=== PATIENT | female | born 1950 | race Caucasian/White ===

== ENCOUNTER 2016-10-25 06:45 | Day surgery (SDC) | payer BC ==
[2016-10-23 13:18] VITALS: BMI 29.2
[~2016-10-25 06:45] MED LIST: LACTATED RINGERS 1,000 ML IV SCH
[2016-10-25 07:18] VITALS: TEMP 97
[2016-10-25] MEDS ORDERED: LACTATED RINGERS 1,000 ML IV ONE (07:18)
[2016-10-25] MEDS ORDERED: PROPOFOL 10 MG/ML 20 ML VIAL IV ONE (07:39)
[2016-10-25 08:04] VITALS: RESP 16
--- NOTE | 2016-10-25 08:06 | P.OP ---
Date of Procedure: 10/25/16 Preoperative Diagnosis: Screening Colonoscopy Postoperative Diagnosis: Diverticulosis Procedure(s) Performed: Colonoscopy Implants: Anesthesia: ANAIS Surgeon: Roselyn Mccormack Pathology: none sent Condition: stable Indications for Procedure: Screening for colon cancer , high risk due to BRCA mutation Operative Findings: Description of Procedure: The patient was brought to the endoscopy suite and placed in lateral decubitus position. IV sedation was given as per anesthesia team. A timeout was performed to verify correct patient and correct procedure.Perianal examination did not reveal any external hemorrhoids. Digital rectal examination was performed and was unremarkable. A well- lubricated endoscope was passed per rectally and was gradually advanced beyond the sigmoid colon, splenic flexure, transverse colon, hepatic flexure and cecum. The ileocecal valve was visualized. Then minimal diverticulosis noted without any evidence of diverticulitis. Scope was gradually withdrawn inspecting all the mucosal surfaces. No polyps were seen. Bowel prep was good. No other polyps or masses noted. Retroflexed in the rectum and there were no internal hemorrhoids The scope was gradually withdrawn. Patient tolerated the procedure well and was taken to post anesthesia care unit in stable condition. Recommend repeat colonoscopy in 3 years Plan - Discharge Summary New Discharge Prescriptions: No Action Cyanocobalamin (Vitamin B-12) [Vitamin B12] 500 mcg PO DAILY Cholecalciferol [Vitamin D3] 2,000 unit PO DAILY Levothyroxine Sodium [Synthroid] 50 mcg PO QAM traMADol HCl [Ultram] 50 mg PO QID PRN PRN Reason: Pain Atorvastatin [Lipitor] 10 mg PO HS Ferrous Sulfate [Feosol] 325 mg PO DAILY Ascorbic Acid [Vitamin C] 500 mg PO DAILY Anastrozole [Arimidex] 1 mg PO DAILY Triamterene/Hydrochlorothiazid [Triamterene-Hctz 37.5-25 mg Tb] 1 each PO DAILY Vitamin E 400 unit PO DAILY Calcium Carbonate [Calcium] 600 mg PO DAILY Discharge Medication List Cholecalciferol [Vitamin D3] 2,000 unit PO DAILY 05/27/15 [History] Cyanocobalamin (Vitamin B-12) [Vitamin B12] 500 mcg PO DAILY 05/27/15 [History] Levothyroxine Sodium [Synthroid] 50 mcg PO QAM 05/27/15 [History] Atorvastatin [Lipitor] 10 mg PO HS 06/08/15 [History] Ferrous Sulfate [Feosol] 325 mg PO DAILY 06/08/15 [History] traMADol HCl [Ultram] 50 mg PO QID PRN 06/08/15 [History] Anastrozole [Arimidex] 1 mg PO DAILY 10/23/16 [History] Ascorbic Acid [Vitamin C] 500 mg PO DAILY 10/23/16 [History] Calcium Carbonate [Calcium] 600 mg PO DAILY 10/23/16 [History] Triamterene/Hydrochlorothiazid [Triamterene-Hctz 37.5-25 mg Tb] 1 each PO DAILY 10/23/16 [History] Vitamin E 400 unit PO DAILY 10/23/16 [History]
[2016-10-25 08:24] VITALS: BP 104/71; PULSE 73
== END 2016-10-25 08:35 | disposition home or self-care (01) ==
LOC: ORWHC2ENDO 06:45
PROVIDERS: ATTEND Surgery
DX: Z12.11 Encounter for screening for malignant neoplasm of colon (principal); K57.30 Diverticulosis of large intestine without perforation or abscess without bleeding; Z86.010 Personal history of colon polyps; Z15.89 Genetic susceptibility to other disease; I10 Essential (primary) hypertension; E78.5 Hyperlipidemia, unspecified; E07.9 Disorder of thyroid, unspecified; Z85.3 Personal history of malignant neoplasm of breast; Z79.891 Long term (current) use of opiate analgesic; Z79.899 Other long term (current) drug therapy; Z88.5 Allergy status to narcotic agent; Z91.040 Latex allergy status
CPT/HCPCS: J2704; G0105

== ENCOUNTER 2017-10-09 11:39 | Day surgery (SDC) | payer MEDICARE ==
[2017-10-03 09:37] VITALS: BMI 29.2
[2017-10-09 10:52] VITALS: BP 131/80; RESP 16
[2017-10-09 11:06] VITALS: PULSE 72
[~2017-10-09 11:39] MED LIST changes: +ACETAMINOPHEN TAB 325 MG TAB PO ONE; +CYCLOPENTOLATE 1% OPHTH SOLN 2 ML BTL OP ONE; +LACTATED RINGERS 1,000 ML IV ONE; +LIDOCAINE 1% INJ 10MG/ML (20 ML MDV) ONE; +MIDAZOLAM 2 MG/2 ML VIAL ONE; +MOXIFLOXACIN HCL 0.5% DROPS 3 ML BTL OP ONE; +PHENYLEPHRINE 2.5% OPHTH DRP 2ML OP NR; +PROPOFOL 10 MG/ML 20 ML VIAL IV ONE; +SUCCINYLCHOLINE CHLORIDE 100 MG/5 ML SYR IV ONE; +TETRACAINE 0.5% OPHTH (PF) DROPS 4 ML BTL OP ONE; +TIMOLOL 0.5% OPHTH DROPS 5 ML BTL OP ONE; +fentaNYL (PF) 50 MCG/ML 2 ML AMP ONE
--- NOTE | 2017-10-09 15:57 | OP ---
OPERATIVE REPORT DATE OF SURGERY: 10/09/2017 PROCEDURE: Phacoemulsification of cataract and intraocular lens implant of the left eye. PREOPERATIVE DIAGNOSIS: Nuclear sclerosis and cortical sclerosis. POSTOPERATIVE DIAGNOSIS: Nuclear sclerosis and cortical sclerosis. SURGEON: Dr. Shadi Saavedra. ANESTHESIA: General. ESTIMATED BLOOD LOSS: None. SPECIMEN TAKEN: None. NARRATIVE: After obtaining the appropriate consent, the patient was brought to the operating room. She was placed under cardiac monitoring, induced into general anesthesia and intubated. She was then returned to the normal supine position and was prepped and draped in the usual sterile manner. She was approached from her left temporal side, and at the 5 o'clock position a 20-gauge paracentesis knife was used to create a paracentesis port through this opening. Amvisc was used to stabilize the anterior chamber. At the 3 o'clock position, 2.5 mm keratome was used to create a self-sealing corneal flap incision in a Langerman's fashion. A cystotome was then introduced to begin a continuous tear capsulorrhexis, which was completed using the Utrata forceps. Hydrodissection and hydrodelineation of the lens was accomplished with balanced salt solution. Phacoemulsification lens was accomplished in 8.31 seconds at 7% power. Remaining cortex was then removed under irrigation and aspiration along with careful polishing of the posterior capsule in capsule vacuum mode. Additional Amvisc was used to stabilize the capsular bag and an KRITSIAN PCB00 21.0 diopter posterior chamber intraocular lens was then inserted into the capsular bag without difficulty. The remaining viscoelastic was then removed from within and around the intraocular lens as well as the anterior chamber. The eye was brought to normal intraocular pressure through the paracentesis port with balanced salt solution and the incisions were confirmed watertight. She then received 2 drops of 0.5% Timolol followed by 2 drops of moxifloxacin and was then patched and shielded in the usual manner. She was extubated in the room and returned to Recovery in good condition. MMODL / IJN: [id number] /
== END 2017-10-09 11:45 | disposition home or self-care (01) ==
LOC: OR 11:39
PROVIDERS: ATTEND Ophthalmology
DX: H25.13 Age-related nuclear cataract, bilateral (principal); H25.013 Cortical age-related cataract, bilateral; H43.391 Other vitreous opacities, right eye; H04.123 Dry eye syndrome of bilateral lacrimal glands; H52.4 Presbyopia; H43.813 Vitreous degeneration, bilateral; H00.026 Hordeolum internum left eye, unspecified eyelid; H00.023 Hordeolum internum right eye, unspecified eyelid; M19.90 Unspecified osteoarthritis, unspecified site; E78.00 Pure hypercholesterolemia, unspecified; E03.9 Hypothyroidism, unspecified; M35.3 Polymyalgia rheumatica; J30.2 Other seasonal allergic rhinitis; I10 Essential (primary) hypertension; Z85.9 Personal history of malignant neoplasm, unspecified; Z92.21 Personal history of antineoplastic chemotherapy; Z92.3 Personal history of irradiation; Z79.1 Long term (current) use of non-steroidal anti-inflammatories (NSAID); Z79.890 Hormone replacement therapy; Z79.899 Other long term (current) drug therapy; Z79.891 Long term (current) use of opiate analgesic; Z88.5 Allergy status to narcotic agent; Z91.040 Latex allergy status; Z88.8 Allergy status to other drugs, medicaments and biological substances; Z87.891 Personal history of nicotine dependence
CPT/HCPCS: 66984; C1780; J2250; J2001; J3010; J0330; J2704

== ENCOUNTER 2017-10-23 06:12 | Day surgery (SDC) | payer MEDICARE ==
[2017-10-14 14:12] VITALS: BMI 29.2
[~2017-10-23 06:12] MED LIST changes: -ACETAMINOPHEN TAB 325 MG TAB PO ONE; -LACTATED RINGERS 1,000 ML IV ONE; -LIDOCAINE 1% INJ 10MG/ML (20 ML MDV) ONE; -MIDAZOLAM 2 MG/2 ML VIAL ONE; -PROPOFOL 10 MG/ML 20 ML VIAL IV ONE; -SUCCINYLCHOLINE CHLORIDE 100 MG/5 ML SYR IV ONE; -fentaNYL (PF) 50 MCG/ML 2 ML AMP ONE
[2017-10-23] MEDS ORDERED: ONDANSETRON 4 MG/2 ML VIAL IVP ONE (07:01)
[2017-10-23] MEDS ORDERED: DEXAMETHASONE SOD PHOS (MDV) 100 MG/10 ML VIAL IVP ONE (07:02)
[2017-10-23] MEDS ORDERED: SCOPOLAMINE 1.5MG/72HR PATCH TRANSDERM ONE (07:03)
[2017-10-23] MEDS ORDERED: HYALURONATE SODIUM INTRAOCULAR 1 EACH SYRINGE (12MG/ML) INTRAOCULA ONE (07:28)
[2017-10-23] MEDS ORDERED: BALANCED SALT IRRIG SOLN COMB2 15 ML IRRIG.SOLN INTRAOCULA ONE (07:28)
[2017-10-23] MEDS ORDERED: EPINEPHrine (PF) 0.3 ML in BALANCED SALT IRRIG SOLN COMB2 500 ML IRRIGATION ONE (07:28)
[2017-10-23] MEDS ORDERED: PROPOFOL 10 MG/ML 20 ML VIAL IV ONE (07:28)
[2017-10-23] MEDS ORDERED: fentaNYL (PF) 50 MCG/ML 2 ML AMP ONE (07:28)
[2017-10-23] MEDS ORDERED: LIDOCAINE 1% INJ 10MG/ML (20 ML MDV) ONE (07:28)
[2017-10-23] MEDS ORDERED: LIDOCAINE 1% (PF) 10MG/ML VIAL MISCELLANE ONE (07:45)
[2017-10-23] MEDS ORDERED: LACTATED RINGERS 1,000 ML IV ONE (08:04)
[2017-10-23 08:14] VITALS: TEMP 97.5
[2017-10-23 08:21] VITALS: RESP 16
[2017-10-23] MEDS ORDERED: ACETAMINOPHEN IV (For NPO) 1,000 MG/100 ML VIAL IVPB ONE (08:26)
[2017-10-23] MEDS ORDERED: fentaNYL (PF) 50 MCG/ML 2 ML AMP IVP ONE (08:59)
--- NOTE | 2017-10-23 09:17 | OP ---
OPERATIVE REPORT SURGEON: Shadi Saavedra MD FOOD SPECIALIST: PREOPERATIVE DIAGNOSES: 1. Nuclear sclerosis. 2. Cortical sclerosis. POSTOPERATIVE DIAGNOSES: 1. Nuclear sclerosis. 2. Cortical sclerosis. OPERATION: Clear cornea phacoemulsification of cataract on right eye. ANESTHESIA: General. ESTIMATED BLOOD LOSS: Zero. SPECIMEN TAKEN: None. NARRATIVE: After obtaining the appropriate consent, the patient was brought to the operating room where the patient was placed under cardiac monitoring and prepped and draped in the usual sterile manner. At the 11 o'clock position a 15 degree super sharp blade was used to create a paracentesis followed by instillation of 1% Xylocaine MPF 50:50 mix with BSS into the anterior chamber. This was followed by Amvisc to stabilize the anterior chamber. At the 9 o'clock position a self-sealing corneal flap incision was created using 2.8 mm mila keratome. A cystotome was used to initiate a continuous tear capsulorrhexis which was completed with the Utrata forceps. A Binkhorst cannula was used to hydrodissect the lens nucleus followed by hydrodelineation. Phacoemulsification of the lens was performed utilizing phaco chop in 11.04 seconds at 9% power. The remaining cortical material was removed using the irrigation aspiration mode followed by additional 1% Xylocaine MPF into the anterior chamber followed by viscoelastic to stabilize the capsular bag. An KRISTIAN PCB00 22.0 posterior chamber lens was placed into the capsular bag without difficulty. The remaining viscoelastic material was removed from the anterior chamber with the irrigation/aspiration. Balanced salt solution was used to normalize the intraocular pressure. The incision was checked for watertight integrity. The patient then received two drops of 0.5% timolol followed by two drops Vigamox, was lightly patched and shielded in the usual manner. There were no complications from the procedure. The patient tolerated the procedure well and was returned to recovery in good condition. MMODL / IJN: [id number] /
[2017-10-23 09:21] VITALS: BP 113/72; PULSE 71
== END 2017-10-23 09:48 | disposition home or self-care (01) ==
LOC: OR 06:12
PROVIDERS: ATTEND Ophthalmology
DX: H25.11 Age-related nuclear cataract, right eye (principal); H25.011 Cortical age-related cataract, right eye; H43.391 Other vitreous opacities, right eye; H04.123 Dry eye syndrome of bilateral lacrimal glands; H52.4 Presbyopia; H43.813 Vitreous degeneration, bilateral; H00.026 Hordeolum internum left eye, unspecified eyelid; H00.023 Hordeolum internum right eye, unspecified eyelid; Z96.1 Presence of intraocular lens; M19.90 Unspecified osteoarthritis, unspecified site; E78.00 Pure hypercholesterolemia, unspecified; E03.9 Hypothyroidism, unspecified; I10 Essential (primary) hypertension; J30.2 Other seasonal allergic rhinitis; J34.9 Unspecified disorder of nose and nasal sinuses; Z90.13 Acquired absence of bilateral breasts and nipples; Z85.9 Personal history of malignant neoplasm, unspecified; Z92.21 Personal history of antineoplastic chemotherapy; Z92.3 Personal history of irradiation; Z79.1 Long term (current) use of non-steroidal anti-inflammatories (NSAID); Z79.890 Hormone replacement therapy; Z79.899 Other long term (current) drug therapy; Z88.5 Allergy status to narcotic agent; Z79.891 Long term (current) use of opiate analgesic; Z91.040 Latex allergy status; Z87.891 Personal history of nicotine dependence
CPT/HCPCS: 66984; C1780; J2405; J0171; J2001 ×2; J3010; J1100; J0131; J2704

== ENCOUNTER 2019-11-11 07:03 | Day surgery (SDC) | payer MEDICARE ==
[2019-11-05 14:31] VITALS: BMI 25.2
[~2019-11-11 07:03] MED LIST changes: -CYCLOPENTOLATE 1% OPHTH SOLN 2 ML BTL OP ONE; -MOXIFLOXACIN HCL 0.5% DROPS 3 ML BTL OP ONE; -PHENYLEPHRINE 2.5% OPHTH DRP 2ML OP NR; -TETRACAINE 0.5% OPHTH (PF) DROPS 4 ML BTL OP ONE; -TIMOLOL 0.5% OPHTH DROPS 5 ML BTL OP ONE
[2019-11-11 07:26] VITALS: TEMP 98.1
[2019-11-11] MEDS ORDERED: LIDOCAINE 1% (10MG/ML) FOR IV START INTRADERMA ONE (07:37)
[2019-11-11 07:38] LABS: Glucose,Whole Blood 94 mg/dL (75-99)
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
[2019-11-11] MEDS ORDERED: PROPOFOL 10 MG/ML 20 ML VIAL IV ONE (07:59)
--- NOTE | 2019-11-11 08:28 | P.PCN ---
Date of Procedure: 11/11/19 Description of Procedure: PREOPERATIVE DIAGNOSIS: Family history colon cancer Personal history of colon polyps History of genetic mutation, BRCA POSTOPERATIVE DIAGNOSIS: Family history colon cancer Personal history of colon polyps History of genetic mutation, BRCA Diverticulosis with sigmoid stricture OPERATION: Colonoscopy to the cecum, ileocecal valve and appendiceal orifice. SURGEON: Jeaneth Sosa MD. ANESTHESIA: MAC. INDICATIONS: The patient is a 69-year-old female who presents for colonoscopy screening. Benefits and risks were described and informed consent was obtained. DESCRIPTION OF PROCEDURE: The patient had undergone Suprep. She had been brought into the operating room and laid in the left lateral decubitus position. After adequate intravenous sedation, the rectum was examined with 2% lidocaine jelly. No external hemorrhoids were encountered. The rectal tone was within normal limits. No lesions were palpated in the rectal vault. An Olympus colonoscope was initially entered to the sigmoid colon and exchanged for a pediatric colonoscope due to stricture. The scope advanced until the cecum, ileocecal valve and appendiceal orifice were clearly viewed. The prep was good with clear visualization of the mucosal folds. The scope was removed with visualization of each mucosal fold. Sigmoid diverticulosis was encountered with stricture between 20-30 cm from the anal verge. No colonic polyps were found. No evidence of focal colitis was found. Retroflexion of the scope demonstrated grade 1 internal hemorrhoids without active bleeding or inflammation. The colon was desufflated. The patient had tolerated the procedure well. Withdrawal time was over 6 minutes. FINDINGS: Aronchick preparation quality scale 2 (1-5) Internal hemorrhoids, grade 1 No external prolapsed hemorrhoids. No arteriovenous malformations. No adenomatous polyps. No focal colitis. Diverticulosis with sigmoid stricture between 20-30 cm from anal verge requiring pediatric colonoscope RECOMMENDATIONS: Lower endoscopy in 2022 years due to genetic risk Plan - Discharge Summary New Discharge Prescriptions: Continue Cyanocobalamin (Vitamin B-12) [Vitamin B-12] 500 mcg PO DAILY Levothyroxine Sodium [Synthroid] 50 mcg PO QAM Atorvastatin [Lipitor] 10 mg PO DAILY Anastrozole [Arimidex] 1 mg PO DAILY Triamterene/Hydrochlorothiazid [Triamterene-Hctz 37.5-25 mg Tb] 1 each PO DAILY Calcium Carbonate [Calcium] 1,200 mg PO DAILY Aspirin [Adult Low Dose Aspirin EC] 81 mg PO DAILY Cholecalciferol [Vitamin D3 (25 Mcg = 1000 Iu)] 2,000 unit PO DAILY Folic Acid 1 mg PO DAILY Leflunomide [Arava] 20 mg PO DAILY predniSONE 2.5 mg PO DAILY Tofacitinib Citrate [Xeljanz Xr] 11 mg PO DAILY Vitamin E 1,000 unit PO DAILY Discharge Medication List Cyanocobalamin (Vitamin B-12) [Vitamin B-12] 500 mcg PO DAILY 05/27/15 [History] Levothyroxine Sodium [Synthroid] 50 mcg PO QAM 05/27/15 [History] Atorvastatin [Lipitor] 10 mg PO DAILY 06/08/15 [History] Anastrozole [Arimidex] 1 mg PO DAILY 10/23/16 [History] Calcium Carbonate [Calcium] 1,200 mg PO DAILY 10/23/16 [History] Triamterene/Hydrochlorothiazid [Triamterene-Hctz 37.5-25 mg Tb] 1 each PO DAILY 10/23/16 [History] Aspirin [Adult Low Dose Aspirin EC] 81 mg PO DAILY 11/05/19 [History] Cholecalciferol [Vitamin D3 (25 Mcg = 1000 Iu)] 2,000 unit PO DAILY 11/05/19 [History] Folic Acid 1 mg PO DAILY 11/05/19 [History] Leflunomide [Arava] 20 mg PO DAILY 11/05/19 [History] Tofacitinib Citrate [Xeljanz Xr] 11 mg PO DAILY 11/05/19 [History] Vitamin E 1,000 unit PO DAILY 11/05/19 [History] predniSONE 2.5 mg PO DAILY 11/05/19 [History] Follow up Appointment(s)/Referral(s): Jeaneth Sosa MD [STAFF PHYSICIAN] - As Needed Patient Instructions/Handouts: Diverticulosis (DC), Diverticulosis Diet (GEN) Activity/Diet/Wound Care/Special Instructions: Repeat colonoscopy in 5 years, 2024 Discharge Disposition: HOME SELF-CARE
[2019-11-11 08:57] VITALS: BP 116/72; PULSE 72; RESP 18
== END 2019-11-11 09:14 | disposition home or self-care (01) ==
LOC: ORWHC2ENDO 07:03
PROVIDERS: ATTEND Surgery Plastic and Reconstructive Surgery
DX: Z12.11 Encounter for screening for malignant neoplasm of colon (principal); K57.30 Diverticulosis of large intestine without perforation or abscess without bleeding; K56.699 Other intestinal obstruction unspecified as to partial versus complete obstruction; K64.0 First degree hemorrhoids; Z86.010 Personal history of colon polyps; Z80.0 Family history of malignant neoplasm of digestive organs; E78.5 Hyperlipidemia, unspecified; M19.90 Unspecified osteoarthritis, unspecified site; M06.9 Rheumatoid arthritis, unspecified; E07.9 Disorder of thyroid, unspecified; I10 Essential (primary) hypertension; D64.9 Anemia, unspecified; Z15.01 Genetic susceptibility to malignant neoplasm of breast; Z91.040 Latex allergy status; Z88.5 Allergy status to narcotic agent; Z85.3 Personal history of malignant neoplasm of breast; Z91.09 Other allergy status, other than to drugs and biological substances; Z86.69 Personal history of other diseases of the nervous system and sense organs; Z92.3 Personal history of irradiation; Z92.21 Personal history of antineoplastic chemotherapy; Z87.81 Personal history of (healed) traumatic fracture; Z90.89 Acquired absence of other organs; Z98.890 Other specified postprocedural states; Z90.710 Acquired absence of both cervix and uterus; Z90.13 Acquired absence of bilateral breasts and nipples; Z87.42 Personal history of other diseases of the female genital tract; Z87.39 Personal history of other diseases of the musculoskeletal system and connective tissue; Z98.41 Cataract extraction status, right eye; Z98.42 Cataract extraction status, left eye; Z87.898 Personal history of other specified conditions; Z91.89 Other specified personal risk factors, not elsewhere classified; Z87.891 Personal history of nicotine dependence; Z79.890 Hormone replacement therapy; Z79.899 Other long term (current) drug therapy; Z79.811 Long term (current) use of aromatase inhibitors; Z79.82 Long term (current) use of aspirin; Z79.52 Long term (current) use of systemic steroids; Z80.41 Family history of malignant neoplasm of ovary; Z82.5 Family history of asthma and other chronic lower respiratory diseases; Z80.9 Family history of malignant neoplasm, unspecified
CPT/HCPCS: G0105; J2704; 45378

== ENCOUNTER → 2019-12-14 | Outpatient (CLI) | payer MEDICARE ==
[2019-12-14 15:42] LABS: Basophils % (A) 1 %; Eosinophils % (A) 0 %; HGB 11.6 gm/dL (11.4-16.0); Lymphocytes % (A) 17 %; MCH 29.4 pg (25.0-35.0); MCHC 31.4 g/dL (31.0-37.0); MCV 93.7 fL (80.0-100.0); Mean Platelet Volume 8.7; Monocytes # (A) 0.4 k/uL (0-1.0); Monocytes % (A) 6 %; Neutrophils # (A) 4.4 k/uL (1.3-7.7); Neutrophils % (A) 74 %; Platelet Count 170 k/uL (150-450); RBC 3.95 m/uL (3.80-5.40); RDW 13.1 % (11.5-15.5)
[2019-12-15 01:32] LABS: African American GFR (CKD) 87.8 (60.0-200.0); Albumin 4.4 g/dL (3.80-4.90); C Reactive Protein 3.5 mg/dL (0.0-0.8); Chol/HDL Ratio 3.25; LDL Cholesterol,Calculated 114.6 mg/dL (0.0-131.0); Non-African American GFR(CKD) 75.8 (60.0-200.0); VLDL Calculation 31.4 mg/dL (5.00-40.00)
[2019-12-15 02:06] LABS: Erythrocyte Sedimentation Rate 52 mm/Hr (0-30)
== END | disposition home or self-care (01) ==
LOC: LABWHC1 15:09
PROVIDERS: ATTEND Internal Medicine Rheumatology
DX: M25.50 Pain in unspecified joint (principal); M06.4 Inflammatory polyarthropathy; E78.79 Other disorders of bile acid and cholesterol metabolism; Z79.01 Long term (current) use of anticoagulants
CPT/HCPCS: 36415; 80061; 82040; 82310; 82565; 84450; 84460; 84520; 85025; 85652; 86140

== ENCOUNTER → 2020-07-20 | Outpatient (CLI) | payer MEDICARE ==
[2020-07-20 20:28] LABS: Basophils # (A) 0.02 X 10*3/uL (0.00-0.10); Basophils % (A) 0.5 %; Eosinophils # (A) 0.09 X 10*3/uL (0.04-0.35); Eosinophils % (A) 2.3 %; HCT 39.2 % (37.2-46.3); HGB 12.3 g/dL (12.0-15.0); Lymphocytes # (A) 0.95 X 10*3/uL (0.90-5.00); Lymphocytes % (A) 24.1 %; MCH 29.4 pg (27.0-32.0); MCHC 31.4 g/dL (32.0-37.0); MCV 93.8 fL (80.0-97.0); Mean Platelet Volume 11.9 fL (9.5-12.2); Monocytes # (A) 0.44 X 10*3/uL (0.20-1.00); Monocytes % (A) 11.2 %; Neutrophils # (A) 2.43 X 10*3/uL (1.80-7.70); Neutrophils % (A) 61.6 %; Platelet Count 179 X 10*3/uL (140-440); RBC 4.18 X 10*6/uL (4.10-5.20); RDW 13.4 % (11.5-14.5); WBC 3.94 X 10*3/uL (4.50-10.00)
[2020-07-20 21:22] LABS: ALT 18 U/L (8-44); AST 26 U/L (13-35); African American GFR (CKD) 75.6 (60.0-200.0); C Reactive Protein <0.4 mg/dL (0.0-0.8); Chol/HDL Ratio 4.16; Cholesterol 262 mg/dL (0-200); LDL Cholesterol,Calculated 170.2 mg/dL (0.0-131.0); Non-African American GFR(CKD) 65.2 (60.0-200.0)
[2020-07-20 22:42] LABS: Erythrocyte Sedimentation Rate 20 mm/Hr (0-30)
== END | disposition home or self-care (01) ==
LOC: LABWHC1 09:44
PROVIDERS: ATTEND Internal Medicine Rheumatology
DX: E78.79 Other disorders of bile acid and cholesterol metabolism (principal); M08.40 Pauciarticular juvenile rheumatoid arthritis, unspecified site; M81.0 Age-related osteoporosis without current pathological fracture
CPT/HCPCS: 36415; 80061; 82040; 82310; 82565; 82784; 84450; 84460; 84520; 85025; 85652; 86140

== ENCOUNTER 2020-10-25 06:03 | Inpatient (IN) | payer MEDICARE ==
[2020-10-25] MEDS ORDERED: KETOROLAC 15 MG/ML 1 ML VIAL IVP STA (06:32)
[2020-10-25] MEDS ORDERED: DIAZEPAM 5 MG/ML 2 ML INJ IVP STA (06:32)
[2020-10-25] MEDS ORDERED: ONDANSETRON 4 MG/2 ML VIAL IVP STA (06:32)
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
[2020-10-25] MEDS ORDERED: methylPREDNISolone SOD SUCCI 125 MG/2 ML VIAL IV STA (07:39)
[2020-10-25] MEDS ORDERED: fentaNYL (PF) 50 MCG/ML 2 ML AMP IVP STA (07:39)
--- NOTE | 2020-10-25 08:06 | CT ---
EXAMINATION TYPE: CT lumbar spine wo con DATE OF EXAM: 10/25/2020 COMPARISON: None HISTORY: Left back pain, radicular symptoms CT DLP: 576 mGycm Automated exposure control for dose reduction was used. An unenhanced CT of the lumbar spine was performed. Bone and soft tissue window settings are submitt ed as well as coronal and sagittal reconstructions. FINDINGS: Lumbar vertebral bodies show preserved height and near-anatomic alignment, minimal anterolisthesis gr betty 1 L3-4. Some loss of bone mineralization is suspected. There is multilevel spondylosis. Loss of d isc height is present at intervertebral levels, there is associated vacuum phenomenon at L2-3, L3-4 a nd L4-5, multilevel Schmorl's node formation. L1-L2: Posterior extension of endplate disc complex causes mild anterior mass effect on the thecal sa c. No significant spinal stenosis. No significant foraminal encroachment. L2-L3: Posterior disc bulge causes effacement of anterior thecal sac. There is no significant foramin al encroachment or spinal stenosis. There is some mild facet arthropathy change. L3-L4: Posterior broad-based disc bulge causes anterior mass effect on the thecal sac, there is eccen tric disc material distending towards the left lateral location, lateral extension endplate disc comp jory results in some left-sided foraminal encroachment. No significant spinal stenosis. There is facet arthropathy change. L4-L5: There is a posterior disc herniation in the left posterior paracentral location extending into the lateral recess on the left, this material suspected posterior to the L5 vertebral body additiona lly. Circumferential extension endplate disc complex results in bilateral foraminal encroachment grea ter on the right, noted only the inferior margin on the left. There is likely contact by the disc mat erial with the left L5 nerve root, correlate for radiculopathy. Facet arthropathy changes are present . No significant spinal stenosis. The hypertrophy of the ligamentum flavum causes some posterior late ral mass effect on the thecal sac. L5-S1: There is a posterior broad-based disc bulge, posterior extension of endplate disc complex exte nds circumferentially to cause bilateral foraminal encroachment. No significant spinal stenosis. The broad-based posterior disc bulge contacts the anterior thecal sac and possibly the proximal S1 nerve roots. There is facet arthropathy change. IMPRESSION: Degenerative disc disease, facet arthropathy, multilevel foraminal encroachment as described, disc he rniation at L4-5, correlate for left L5 radiculopathy. Disc material suspected posterior to the L5 ve rtebral body in the left posterior paracentral location extending into the lateral recess. MRI may be of benefit.
[2020-10-25] MEDS ORDERED: ONDANSETRON 4 MG/2 ML VIAL IVP PRN (08:39)
[2020-10-25] MEDS ORDERED: fentaNYL (PF) 50 MCG/ML 2 ML AMP IVP PRN (08:39)
[2020-10-25] MEDS ORDERED: NALOXONE 0.4 MG/ML 1 ML VIAL IV PRN (08:39)
[2020-10-25] MEDS ORDERED: diphenhydrAMINE 50 MG/ML 1 ML VIAL IVP STA (08:45)
[2020-10-25] MEDS ORDERED: traMADol 50 MG TAB PO PRN (12:33)
[2020-10-25] MEDS ORDERED: methocarbamoL 500 MG TAB PO PRN (12:47)
[2020-10-25] MEDS ORDERED: ACETAMINOPHEN TAB 325 MG TAB PO PRN (12:47)
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
[2020-10-25] MEDS: traMADol 50 MG TAB PO PRN ×2 (12:54→21:01)
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
[2020-10-25] MEDS ORDERED: LACTATED RINGERS 1,000 ML IV ONE ×2 (15:05→15:45)
[2020-10-25] MEDS ORDERED: TRIAMCINOLONE ACETONIDE 40 MG/ML 1 ML VIAL ONE (15:26)
[2020-10-25] MEDS ORDERED: ROPIVACAINE 5MG/ML 20ML VIAL ONE (15:26)
[2020-10-25] MEDS ORDERED: IOPAMIDOL M200 10 ML VIAL ONE (15:26)
[2020-10-25] MEDS ORDERED: fentaNYL (PF) 50 MCG/ML 2 ML AMP ONE (15:26)
[2020-10-25] MEDS ORDERED: MIDAZOLAM 2 MG/2 ML VIAL ONE (15:26)
--- NOTE | 2020-10-25 15:43 | P.PCN ---
Date of Procedure: 10/25/20 Surgeon: Mikael Chapin Pathology: none sent Condition: stable Disposition: PACU Description of Procedure: PREOPERATIVE DIAGNOSIS: 1-Lumbar radiculopathy 2- Lumber Degenerative Disc Diseases. POSTOPERATIVE DIAGNOSIS: 1-Lumbar radiculopathy. 2-Lumbar Degenerative Disc Diseases PROCEDURE 1. Lumbar epidural steroid injection under fluoroscopic guidance at the L4-5 level in the left paramedian approach. 2. Lumbar epidurogram. ANESTHESIA: Local with 1% lidocaine; and IV moderate conscious sedation with Versed and fentanyl EBL: Minimal PROCEDURE INDICATION: The patient with low back pain and radiculitis symptoms unresponsive to conservative treatment. Fluoroscopy was used to optimize visualization of the needle placement and to maximize safety. PROCEDURE DESCRIPTION / TECHNIQUE: The patient was seen and identified in the preoperative area. Risks, benefits, complications including but not limited to infections ,bleeding ,allergic reaction to the medications ,nerve damage and not complete pain relief , and alternatives were discussed with the patient. The patient agreed to proceed with the procedure and signed the consent. IV was started, and vital signs were stable. Patient was taken to the OR and time out was completed. The patient was placed in the prone position on procedure table and a pillow was placed under the abdomen to reduce lumbar lordosis. The lumbosacral area was prepped and draped in the usual sterile fashion with ChloraPrep.Patient was closely monitored during the procedure. Conscious sedation was used during the procedure to decrease patients anxiety. Vital signs were monitered during the entire procedure. Using anterior-posterior fluoroscopy, the L4-5 interlaminar space was identified and the skin over this site was marked and then infiltrated with 1% lidocaine subcutaneously. Subsequently, a 20-gauge Tuohy epidural needle was inserted and advanced toward the epidural space using the Loss of resistance to air technique and guided by AP and lateral fluoroscopy. The correct needle position in the epidural space was verified with the injection of 1 mL of the water soluble contrast dye Omnipaque 180 contrast and observing an excellent epidurogram with the epidural spread of the dye, after negative aspiration for blood and CSF and in the absence of paresthesias. Again after negative aspiration, a 8 ml mixture containing 40 mg of Kenalog and 5 ml of preservative free Normal Saline, and 2 ml of preservative free ropivacaine 0.5% solution was injected and a washout of epidurogram was seen. Needle was withdrawn intact, skin was cleansed, and bandages were applied. patient tolerated procedure well and was transferred to PACU in stable condition.A copy of the needle placement picture was saved to the fluoroscopy machine. COMPLICATIONS: None DISPOSITION / PLANS: The patient was placed in a supine position and transferred to the recovery area in a stable condition for observation. There was no evidence of lower extremity motor or sensory deficit after the procedure. Patient was discharged from the recovery room after meeting discharge criteria. Home discharge instructions were given to the patient by the staff. The patient was reexamined prior to discharge. The patient will schedule a follow up in the clinic in 2-4 weeks.
[2020-10-25] MEDS: methylPREDNISolone SOD SUCCI 125 MG/2 ML VIAL IV SCH (17:14)
[2020-10-25] MEDS: ANASTROZOLE 1 MG TAB PO SCH (21:01)
[2020-10-26] MEDS: methylPREDNISolone SOD SUCCI 125 MG/2 ML VIAL IV SCH ×3 (00:18→17:17)
[2020-10-26] MEDS: LEVOTHYROXINE 50 MCG TAB PO SCH (05:44)
[2020-10-26] MEDS: DIAZEPAM 5 MG/ML 2 ML INJ IVP PRN (06:08)
[2020-10-26] MEDS: FERROUS SULFATE 325 MG TAB PO SCH (07:37)
[2020-10-26] MEDS: CALCIUM CARB-VIT D 500 MG-5 MCG TAB PO SCH (07:38)
[2020-10-26] MEDS: ATORVASTATIN 20 MG TAB PO SCH (07:39)
[2020-10-26] MEDS: ASPIRIN 81 MG PO SCH (07:39)
[2020-10-26] MEDS: CYANOCOBALAMIN 500 MCG TAB PO SCH (07:39)
[2020-10-26] MEDS: CHOLECALCIFEROL 25 MCG (1000 IU) TABLET PO SCH (07:39)
[2020-10-26] MEDS: FOLIC ACID 1 MG TAB PO SCH (07:39)
[2020-10-26] MEDS: traMADol 50 MG TAB PO PRN (07:40)
[2020-10-26] MEDS: ANASTROZOLE 1 MG TAB PO SCH (07:45)
[2020-10-26] MEDS: VITAMIN E (DL,TOCOPHERYL ACET) 400 UNIT (180 MG) CAP PO SCH (07:46)
[2020-10-26] MEDS: TRIAMTERENE-HCTZ 37.5-25MG 1 EACH CAP PO SCH (07:47)
[2020-10-26] MEDS ORDERED: NON FORMULARY DRUG (Phentermine Hcl [Adipex-P] 37.5 MG Tablet) PO SCH (09:00)
[2020-10-26] MEDS ORDERED: LEFLUNOMIDE 20 MG TAB PO SCH (09:00)
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
--- NOTE | 2020-10-26 11:33 | MR ---
EXAMINATION TYPE: MR lumbar spine wo con DATE OF EXAM: 10/26/2020 COMPARISON: CT lumbar spine 10/25/2020 HISTORY: Pain TECHNIQUE: Multiplanar, multisequence images of the lumbar spine were acquired. L1-L2: Posterior broad-based disc bulge causes mild anterior mass effect on the thecal sac. No signif icant foraminal encroachment. L2-L3: Posterior broad-based disc bulge causes anterior mass effect on the thecal sac. No significant foraminal encroachment. L3-L4: Posterior broad-based disc bulge extends circumferentially cause some foraminal encroachment o n the left, there is some effacement of anterior thecal sac. Facet arthropathy with hypertrophy ligam entum flavum causes posterior lateral aspect of the thecal sac. L4-L5: There is a posterior broad-based disc bulge present causing anterior mass effect on the thecal sac. Facet arthropathy with hypertrophy ligamentum flavum causes some posterior lateral aspect of th e thecal sac. Some low signal is noted at the left lateral recess and extends posterior to the L5 ana tebral body which may represent disc sequestration, correlate for left L5 radiculopathy. L5-S1: Posterior broad-based disc bulge effaces the anterior thecal sac. There may be contact with th e proximal S1 nerve roots. There is facet arthropathy with hypertrophy of the ligamentum flavum. Circ umferential extension of endplate disc complex results in some foraminal encroachment. There is minim al anterolisthesis grade 1 L5-S1. Lumbar segments are intact. No paraspinal masses are identified. Conus medullaris has a normal appe arance. There is multilevel spondylosis, there are endplate discogenic marrow signal changes. Loss of disc height and signal is present at the intervertebral levels. No significant spinal stenosis. IMPRESSION: Degenerative disc disease with disc herniation and probable sequestered disc fragment posterior to th e L5 vertebral body and involving the left lateral recess, contrast enhanced exam may be of benefit.
--- NOTE | 2020-10-26 11:57 | P.PN ---
Progress Note - Text Progress Note Date: 10/26/20 The patient is again seen and examined. She had her MRI and her x-rays today. I reviewed the images of the MRI and the x-rays as well as the reports. The MRI shows a disc herniation L4 5 with a extruded disc fragment which has migrated behind L5 on the left which correlated well with her symptoms. She has cemented disc degeneration at L4 5 there is also some facet arthrosis and disc herniation L3 4 and L5-S1. The x-ray of the lumbar spine with flexion-extension shows significant disc heig ht loss at L4 5 there is no evidence of listhesis or obvious instability in flexion and extension. Had a long discussion with patient regards to her symptoms and imaging findings. The patient has a disc herniation which correlates well with her low back and lower extremity symptoms. She has primarily lower extremity symptoms with some weakness with dorsiflexion which relates with the Hurst disc herniation at L4 5. She is not had significant low back pain over the past and is not having evidence of instability. With her weakness as well as her severe symptoms and inability to mobilize as well as the fact that her steroids and interventional pain management has not given her significant relief she is very interested in surgical intervention. I think that she could do well with laminectomy decompression with discectomy for decompression at L4 5. We discussed possibly a fusion surgery and we will try to hold off on fusion and see if she can do well with decompression alone. I discussed the risk, patient's alternatives benefits of surgery including but not limited to the risk of bleeding risk infection was need further surgery risk of decreased loss of motion loss function dural tear nerve damage as well as packet surgery may not alleviate her symptoms as explained. The patient elected to proceed with surgical intervention and will sign informed consent. We'll have her cleared with medical management and I discussed this with the medicine service as well. We will plan for surgical intervention tomorrow on for laminectomy decompression L4 5.
[2020-10-26] MEDS: HYDROcodone/APAP 5-325MG 1 EACH TAB PO PRN ×2 (12:44→21:02)
[2020-10-26 12:46] LABS: Basophils % (A) 0 %; Eosinophils % (A) 0 %; HCT 36.9 % (34.0-46.0); HGB 12.5 gm/dL (11.4-16.0); Lymphocytes # (A) 0.4 k/uL (1.0-4.8); Lymphocytes % (A) 3 %; MCH 30.7 pg (25.0-35.0); MCHC 33.9 g/dL (31.0-37.0); MCV 90.5 fL (80.0-100.0); Mean Platelet Volume 8.5; Monocytes # (A) 0.3 k/uL (0-1.0); Monocytes % (A) 3 %; Neutrophils # (A) 10.8 k/uL (1.3-7.7); Neutrophils % (A) 94 %; Platelet Count 172 k/uL (150-450); RBC 4.08 m/uL (3.80-5.40); RDW 13.3 % (11.5-15.5); WBC 11.5 k/uL (3.8-10.6)
[2020-10-26 12:54] LABS: African American GFR (CKD) 87 (>60 ml/min/1.73 sqM); Anion Gap 8 mmol/L; Blood Urea Nitrogen 30 mg/dL (7-17); Calcium 9.9 mg/dL (8.4-10.2); Carbon Dioxide 29 mmol/L (22-30); Chloride 101 mmol/L (98-107); Glucose 120 mg/dL (74-99); Non-African American GFR(CKD) 76 (>60 ml/min/1.73 sqM); Potassium 4.3 mmol/L (3.5-5.1); Sodium 138 mmol/L (137-145)
--- NOTE | 2020-10-26 13:02 | XR ---
EXAMINATION TYPE: XR chest 2V DATE OF EXAM: 10/26/2020 CLINICAL HISTORY: pre op clearance. TECHNIQUE: Frontal and lateral view of the chest. COMPARISON: 05/30/2015 FINDINGS: Bilateral breast implants. The cardiomediastinal silhouette is within normal limits for size. Pulmonary vasculature is normal. T here is no focal air space opacity. No pleural effusion. No pneumothorax seen. No acute displaced os seous fracture. Degenerative changes of the mid to inferior thoracic spine. IMPRESSION: No acute cardiopulmonary process.
[2020-10-26 13:07] LABS: INR 0.9 (<1.2); Prothrombin Time 9.6 sec (9.0-12.0)
[2020-10-26 13:20] LABS: Partial Thromboplastin Time 20.3 sec (22.0-30.0)
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
--- NOTE | 2020-10-26 14:44 | XR ---
EXAMINATION TYPE: XR lumbar spine with bend/flex DATE OF EXAM: 10/26/2020 CLINICAL HISTORY: Lumbar disc herniation, degenerative disc disease, spondylosis TECHNIQUE: Standing frontal and standing lateral neutral/extension/flexion views of the lumbar spine obtained. COMPARISON: 10/25/2020 MRI lumbar spine. 10/25/2020 CT lumbar spine. FINDINGS: There are 5 lumbar type vertebral bodies identified. There is straightening of the lumbar lordosis. Vertebral body heights are normal. No acute displaced fracture. There is disc space narrow ing at L4-L5 and L5-S1. There is multilevel vacuum disc phenomenon. There is no spondylolisthesis natalia reciated in neutral, extension, or flexion views. There is marked osteophytic spurring of the lumbar spine endplates. Multilevel facet arthropathy worse inferiorly. The overlying soft tissue appears unr emarkable. IMPRESSION: 1. Multilevel degenerative disc disease and facet arthropathy. 2. No evidence of spondylolisthesis in neutral, extension, or flexion views.
[2020-10-26 15:03] LABS: Appearance,Urine Clear (Clear); Bilirubin,Urine Negative (Negative); Blood,Urine Negative (Negative); Color,Urine Yellow; Glucose,Urine (UA) Negative (Negative); Ketones,Urine Negative (Negative); Leukocyte Esterase,Urine Negative (Negative); Nitrite,Urine Negative (Negative); PH, Urine 5.5 (5.0-8.0); Protein,Urine Negative (Negative); Specific Gravity,Urine 1.014 (1.001-1.035); Urobilinogen,Urine <2.0 mg/dL (<2.0)
[2020-10-26 17:08] LABS: Glucose,Whole Blood 157 mg/dL (75-99)
[2020-10-26] MEDS: INSULIN ASPART (NovoLOG) 100 UNIT/ML VIAL SQ SCH ×2 (18:12→21:30)
[2020-10-26 20:09] LABS: Glucose,Whole Blood 120 mg/dL (75-99)
[2020-10-27] MEDS: methylPREDNISolone SOD SUCCI 125 MG/2 ML VIAL IV SCH ×4 (00:40→23:41)
[2020-10-27] MEDS: HYDROcodone/APAP 5-325MG 1 EACH TAB PO PRN ×3 (05:04→20:17)
[2020-10-27] MEDS: LEVOTHYROXINE 50 MCG TAB PO SCH (05:04)
[2020-10-27] MEDS: SODIUM CHLORIDE 0.9% 1,000 ML IV SCH ×3 (05:04→16:08)
[2020-10-27] MEDS ORDERED: LACTATED RINGERS 1,000 ML IV SCH (05:52)
[2020-10-27 06:56] LABS: Glucose,Whole Blood 161 mg/dL (75-99)
[2020-10-27] MEDS: ATORVASTATIN 20 MG TAB PO SCH (07:10)
[2020-10-27] MEDS: CHOLECALCIFEROL 25 MCG (1000 IU) TABLET PO SCH (07:10)
[2020-10-27] MEDS: CYANOCOBALAMIN 500 MCG TAB PO SCH (07:10)
[2020-10-27] MEDS: CALCIUM CARB-VIT D 500 MG-5 MCG TAB PO SCH (07:10)
[2020-10-27] MEDS: FOLIC ACID 1 MG TAB PO SCH (07:11)
[2020-10-27] MEDS: VITAMIN E (DL,TOCOPHERYL ACET) 400 UNIT (180 MG) CAP PO SCH (07:11)
[2020-10-27] MEDS: FERROUS SULFATE 325 MG TAB PO SCH (07:11)
[2020-10-27] MEDS: ASPIRIN 81 MG PO SCH (09:12)
[2020-10-27] MEDS: ANASTROZOLE 1 MG TAB PO SCH (09:13)
[2020-10-27] MEDS: TRIAMTERENE-HCTZ 37.5-25MG 1 EACH CAP PO SCH (09:14)
[2020-10-27] MEDS: INSULIN ASPART (NovoLOG) 100 UNIT/ML VIAL SQ SCH ×4 (09:14→20:31)
[2020-10-27] MEDS ORDERED: IV FLUID CONTINUATION 1,000 ML IV ONE (09:59)
[2020-10-27] MEDS ORDERED: ONDANSETRON 4 MG/2 ML VIAL IVP ONE (10:21)
[2020-10-27] MEDS ORDERED: SCOPOLAMINE 1.5MG/72HR PATCH TRANSDERM ONE (10:26)
[2020-10-27 10:30] LABS: Glucose,Whole Blood 103 mg/dL (75-99)
[2020-10-27] MEDS ORDERED: MIDAZOLAM 2 MG/2 ML VIAL IVP ONE ×2 (10:33→10:51)
[2020-10-27] MEDS ORDERED: PHENYLEPHRINE-0.9% NACL SYG 1,000 MCG/10 ML SYRINGE ONE (10:56)
[2020-10-27] MEDS ORDERED: PROPOFOL 10 MG/ML 20 ML VIAL IV ONE (10:56)
[2020-10-27] MEDS ORDERED: MIDAZOLAM 2 MG/2 ML VIAL ONE (10:56)
[2020-10-27] MEDS ORDERED: LIDOCAINE 1% INJ 10MG/ML (20 ML MDV) ONE (10:56)
[2020-10-27] MEDS ORDERED: KETAMINE 10 MG/ML 20 ML VIAL ONE (10:56)
[2020-10-27] MEDS ORDERED: fentaNYL (PF) 50 MCG/ML 2 ML AMP ONE (10:56)
[2020-10-27] MEDS ORDERED: SUCCINYLCHOLINE CHLORIDE 100 MG/5 ML SYR IV ONE (10:56)
[2020-10-27] MEDS ORDERED: BUPIVACAINE (PF) 0.25% 30 ML VIAL SQ ONE ×2 (11:28)
[2020-10-27] MEDS ORDERED: GELATIN SPONGE,ABSORB (LARGE) 1 EACH SPONGE TOPICAL ONE (11:28)
[2020-10-27] MEDS ORDERED: LIDOCAINE 1%-EPI 1:100,000 20 ML VIAL SQ ONE ×2 (11:28)
[2020-10-27] MEDS ORDERED: THROMBIN (BOVINE) 5,000 UNIT VIAL TOPICAL ONE (11:29)
[2020-10-27] MEDS ORDERED: LACTATED RINGERS 1,000 ML IV ONE (11:57)
[2020-10-27] MEDS ORDERED: methylPREDNISolone ACETATE 40 MG/ML 1 ML VIAL MISCELLANE ONE (11:57)
[2020-10-27] MEDS ORDERED: fentaNYL (PF) 50 MCG/ML 2 ML AMP IVP ONE (12:30)
[2020-10-27] MEDS ORDERED: HYDROmorphone 0.5 MG/0.5 ML SYRINGE IVP PRN (12:34)
[2020-10-27] MEDS ORDERED: HYDROcodone/APAP 5-325MG 1 EACH TAB PO PRN (12:34)
[2020-10-27] MEDS ORDERED: MAGNESIUM HYDROXIDE 2,400 MG/10 ML CUP PO PRN (12:34)
[2020-10-27] MEDS ORDERED: BENZOCAINE/MENTHOL LOZENG 1 EACH LOZENGE MUCOUS MEM PRN (12:34)
[2020-10-27] MEDS ORDERED: HYDROmorphone 1 MG/ML 1 ML SYRINGE IVP PRN (12:34)
[2020-10-27] MEDS ORDERED: KETOROLAC 15 MG/ML 1 ML VIAL IVP PRN (12:36)
[2020-10-27] MEDS ORDERED: CYCLOBENZAPRINE 10 MG TAB PO PRN (12:36)
[2020-10-27] MEDS ORDERED: IBUPROFEN 600 MG TAB PO PRN (12:36)
--- NOTE | 2020-10-27 12:51 | P.OP ---
Date of Procedure: 10/27/20 Preoperative Diagnosis: Herniated nucleus pulposis L4 5, left lower extremity radiculopathy, left lower extremity weakness, degenerative disc disease Postoperative Diagnosis: Same Anesthesia: GETA Pathology: none sent Condition: stable Disposition: PACU Description of Procedure: BRIEF OPERATIVE NOTE Preoperative Diagnosis:Herniated nucleus pulposis L4 5, left lower extremity radiculopathy, left lower extremity weakness, degenerative disc disease Postoperative Diagnosis:Herniated nucleus pulposis L4 5, left lower extremity radiculopathy, left lower extremity weakness, degenerative disc disease Procedure: Laminectomy and decompression L4 5 with partial medial facetectomy and foraminotomy Discectomy for decompression L4 5 Surgeon: Dr. Vincent Kiln Burner: daycare assistant Anesthesia: General anesthesia Estimated blood loss: Approximately 50 mL Complications: None apparent Components implanted: None Disposition: To recovery room in good stable condition. OPERATIVE INDICATIONS The patient has been having issues in their lower back and lower extremities. She has had acute worsening and severe problems with her left lower extremity. She is having significant weakness which was a change for her. She is unable ambulate and was hospitalized due to her issues. She underwent an epidural steroid injection but only had about 1 day of relief. She is found have a large disc herniation with extruded fragment L4 5 which correlated well with her lower extremity symptoms and her weakness. The patient has been through conservative treatment. She does not feel she is making any good progress. We discussed various treatment options including surgery, and the patient wishes to proceed with surgery. We discussed the possibility of decompression alone versus possibly decompression and fusion as well. We discussed the risk, patient's alternatives and benefits of surgery including but not limited to, risk of bleeding risk of infection, risk of need for further surgery, risk of decreased, loss of motion, loss of function, nerve damage, paralysis, heart attack, blindness and . OPERATIVE SUMMARY After discussing all the risks, patient alternatives and benefits at length, the patient elected to proceed with surgical intervention, signed informed consent, and presented for their procedure. The patient was seen and examined in the preoperative holding area and the surgical site was marked. The patient was given antibiotics and brought to the operating room. The patient was sedated and intubated by anesthesia in standard fashion. The patient was positioned on to the operating room table in a prone position on the appropriate frame which was well-padded and well molded. We were careful to pad any bony prominences and pressure points. We were careful to maintain the patient's cervical spine and good neutral alignment and position throughout. The patient was prepped and draped in a normal standard fashion. An appropriate timeout and keystone protocol performed. We were able to proceed with the surgery. Fluoroscopy was utilized to establish the appropriate level. The local wound area was infiltrated with local anesthetic. An incision was made at the midline longitudinally over the appropriate levels at L4 5. Dissection was taken down subcutaneously to the level of the fascia which was split midline. Dissection was taken over the lamina. Intraoperative fluoroscopy was taken which showed a marker at the appropriate level of L4 5. With the appropriate level positively confirmed, we were able to proceed with laminectomy. The wound was copiously irrigated and suctioned dry as had been done periodically throughout the case. I performed a laminectomy with a combination of curettes and a high-speed bur and Kerrison rongeurs. A small medial facetectomy was performed again further access. A partial foraminotomy was also performed. Portions of the ligamentum flavum were taken down to expose the dura and traversing nerve root. I was able to mobilize the traversing nerve root and gain access to the disc space. Note was made of obvious compression from the disc. There is significant amount of extruded disc fragment which and migrated inferiorly behind the vertebral body of L5. Protecting the soft tissue structures, a small annulotomy was established. I was able to perform discectomy and remove any extruded disc fragments and any loose fragments from within the disc itself. As able get excellent decompression and removed the extruded fragments in the migrated treatment as well. There is some severe disc desiccation noted. I tried to preserve the disc annulus that appeared stable. There were no further extruded fragments noted. There is no evidence of dural tear or leak. Good hemostasis maintained. The wound was copiously irrigated and suctioned dry. Good decompression and discectomy was noted. We were able to proceed with closure. The fascia was closed for a watertight closure. The subcuticular tissue was closed with absorbable suture. The wound was cleaned and dried and dressed with the appropriate dressing. The drapes were broken down. The patient was gently rolled back onto their hospital bed being careful to maintain their cervical spine and good neutral alignment and position. They were woken up by anesthesia, extubated, and brought to the recovery room in good stable condition. The patient will be admitted to the hospital for observation and for appropriate postoperative care, medical management and monitoring. We will continue to follow them closely about the postoperative course.
--- NOTE | 2020-10-27 13:32 | FL ---
EXAMINATION TYPE: FL guidance operating room, XR lumbar spine 1V DATE OF EXAM: 10/27/2020 CLINICAL HISTORY: Lumbar laminectomy TECHNIQUE: Fluoroscopy. COMPARISON: None. FINDINGS: Fluoroscopic guidance was provided during procedure performed by Dr. Vincent. A total of 3 seconds of fluoroscopic time was utilized during the procedure and 1 spot images was acquired. IMPRESSION: As Above.
[2020-10-27 17:01] LABS: Glucose,Whole Blood 204 mg/dL (75-99)
[2020-10-27 20:08] LABS: Glucose,Whole Blood 132 mg/dL (75-99)
[2020-10-27] MEDS: DIAZEPAM 5 MG/ML 2 ML INJ IVP PRN (23:46)
[2020-10-28] MEDS: HYDROcodone/APAP 5-325MG 1 EACH TAB PO PRN ×2 (01:54→08:05)
[2020-10-28] MEDS: SODIUM CHLORIDE 0.9% 1,000 ML IV SCH (05:50)
[2020-10-28] MEDS: LEVOTHYROXINE 50 MCG TAB PO SCH (05:50)
[2020-10-28 07:14] LABS: Glucose,Whole Blood 128 mg/dL (75-99)
[2020-10-28] MEDS: INSULIN ASPART (NovoLOG) 100 UNIT/ML VIAL SQ SCH ×2 (07:40→11:27)
[2020-10-28] MEDS: ANASTROZOLE 1 MG TAB PO SCH (08:04)
[2020-10-28] MEDS: CYANOCOBALAMIN 500 MCG TAB PO SCH (08:06)
[2020-10-28] MEDS: FERROUS SULFATE 325 MG TAB PO SCH (08:06)
[2020-10-28] MEDS: CALCIUM CARB-VIT D 500 MG-5 MCG TAB PO SCH (08:06)
[2020-10-28] MEDS: CHOLECALCIFEROL 25 MCG (1000 IU) TABLET PO SCH (08:06)
[2020-10-28] MEDS: ASPIRIN 81 MG PO SCH (08:06)
[2020-10-28] MEDS: TRIAMTERENE-HCTZ 37.5-25MG 1 EACH CAP PO SCH (08:06)
[2020-10-28] MEDS: ATORVASTATIN 20 MG TAB PO SCH (08:06)
[2020-10-28] MEDS: methylPREDNISolone SOD SUCCI 125 MG/2 ML VIAL IV SCH (08:06)
[2020-10-28] MEDS: VITAMIN E (DL,TOCOPHERYL ACET) 400 UNIT (180 MG) CAP PO SCH (08:06)
[2020-10-28] MEDS: FOLIC ACID 1 MG TAB PO SCH (08:06)
[2020-10-28] MEDS ORDERED: SENNOSIDES-DOCUSATE SODIUM 1 EACH TAB PO SCH (09:00)
[2020-10-28 11:25] LABS: Glucose,Whole Blood 123 mg/dL (75-99)
--- NOTE | 2020-10-28 11:30 | P.PN ---
Subjective Progress Note Date: 10/28/20 This patient is a 70-year-old female who is status-post laminectomy and decompression L4-5 with partial medial facetectomy and foraminotomy on 10/27/[address] Vincent. Today is postoperative day #1. Patient is seen and examined bedside. She states she is doing well and her pain is well controlled. She notes mild low back pain at the surgical site, otherwise her left lower extremity pain has resolved. She has been up to the restroom with minimal discomfort. She has had a bowel movement postoperatively. She is urinating without issues. She is tolerating her diet well. She denies chest pain, shortness breath, nausea, vomiting, fevers, chills. She has no complaints today. Vital signs stable. Objective - Vital Signs Vital signs: Vital Signs Temp 98.7 F 10/28/20 05:00 Pulse 67 10/28/20 05:00 Resp 16 10/28/20 05:00 BP 106/63 10/28/20 05:00 Pulse Ox 95 10/28/20 05:00 Intake & Output 10/27/20 10/28/20 10/28/20 18:59 06:59 18:59 Intake Total 950 1960 Output Total 50 Balance 900 1960 Intake: IV 950 Intake, IV Titration 1000 Amount Sodium Chloride 0.9% 1, 900 000 ml @ 75 mls/hr IV . [id number] JO ANN Rx#:[id number] ceFAZolin 2 gm In Sodium 100 Chloride 0.9% 50 ml @ 100 mls/hr IVPB Q8H JO ANN Rx#: [id number] Oral 960 Output: Estimated Blood Loss 50 Other: Voiding Method Toilet # Voids 1 - Exam On examination, the patient is lying in bed in no pain distress. She is alert and orientated 3. On inspection of the low back, there is a clean, dry, intact OptiForm dressing in place. There is no bleeding or drainage to the dressing. Motor and sensory function is intact of the bilateral lower extremities. Bila teral lower extremities are warm and well perfused with brisk capillary refill distally. Compression cuffs are in place, calves are soft and nontender to palpation bilaterally. - Labs CBC & Chem 7: 10/26/20 12:15 10/26/20 12:15 Labs: Abnormal Lab Results - Last 24 Hours (Table) 10/27/20 10/27/20 10/28/20 Range/Units 16:59 20:06 07:12 POC Glucose (mg/dL) 204 H 132 H 128 H (75-99) mg/dL Assessment and Plan Assessment: Status-post laminectomy and decompression L4-5 with partial medial facetectomy and foraminotomy on 10/27/20. Postoperative day #1. Plan: - Patient may continue to mobilize as tolerated. She may ambulate as tolerated. No repetitive bending or twisting. - Keep Optifoam dressing in place. - Pain management as needed. - Postoperative antibiotics complete. - Medical management per internal medicine team. - Anticipate discharge home tomorrow, pending medical clearance.
--- NOTE | 2020-10-28 11:42 | P.PN ---
Subjective Progress Note Date: 10/27/20 HISTORY OF PRESENT ILLNESS This is a 70-year-old female patient of Dr. Goldsmith with past medical history of hypertension,hyperlipidemia, rheumatoid arthritis, osteoarthritis, breast cancer, BRCA2 status post bilateral mastectomy and chemotherapy completed in 2016, hypothyroidism. Patient states she saw Dr. Goldsmith in September and was placed on prednisone for 10 day course secondary to lumbar back pain with radiation down the left leg. She states she completed the course of steroids and had a follow-up visit on October 14. It seems that as soon as her prednisone was completed, pain returned. She complains of numbness and tingling in the left foot. Pain does not seem to be improving and continues to worsen over the past several weeks. She also is having some weakness of her left leg. She denies any loss of bowel or bladder control. Patient was also seen by chiropra ctor. Patient presented to [facility] emergency center yesterday. CAT scan of the lumbar spine revealed significant disc degeneration L2 through L3 4 L4 5. There is some vacuum disc none. There appears to be a disc herniation at L4 5 with some extrusion of material. There is foraminal stenosis L3 4 and L4 5. There is no obvious fracture. WBC 11.5, hemoglobin 12.5, platelet count 172. Electrolytes were normal. BUN 30 and creatinine 0.8. Blood sugar 120. Patient was admitted to the [facility] floor and she was seen last evening by pain management and is status post lumbar epidural steroid injection at the L4 5 level. Chest x-ray reveals no acute cardiopulmonary process. MRI of the lumbar spine reveals degenerative disc disease with disc herniation and probable sequestered disc fragment posterior to the L5 vertebral body and falling to the left lateral recess. Patient has been reevaluated by Dr. Yuen with plan for surgical intervention on for laminectomy decompression of L4 5. 10/27: Patient states that her pain is currently controlled and spasms are gone. She is tolerating Kent's which seems to be improving her pain. She is scheduled for surgical intervention today. Blood sugars are running between 120s and 161. Patient's been afebrile, heart rate 54, blood pressure 135/82, pulse ox 93% on room air. REVIEW OF SYSTEMS Constitutional: No fever, no chills, no night sweats. No weight change. No weakness, fatigue or lethargy. No daytime sleepiness. EENT: No headache. No blurred vision or double vision, no loss of vision. No loss of Hearing, no ringing in the ears, no dizziness. No nasal drainage or congestion. No epistaxis. No sore throat. Lungs: No shortness of breath, cough, no sputum production. No wheezing. Cardiovascular: No chest pain, no lower extremity edema. No palpitations. No paroxysmal nocturnal dyspnea. No orthopnea. No lightheadedness or dizziness. No syncopal episodes. Abdominal: No abdominal pain. No nausea, vomiting. No diarrhea. No constipation. No bloody or tarry stools.. No loss of appetite. Genitourinary: No dysuria, increased frequency, urgency. No urinary retention. Musculoskeletal: No myalgias. No muscle weakness, reports gait dysfunction, no frequent falls. Reports back pain. No neck pain. Integumentary: No wounds, no lesions. No rash or pruritus. No unusual bruising. No change in hair or nails. Neurologic: No aphasia. No facial droop. No change in mentation. No head injury. No headache. No paralysis. No paresthesia. Psychiatric: No depression. No anxiety. No mood swings. Endocrine: No abnormal blood sugars. No weight change. No excessive sweating or thirst. No cold intolerance. PHYSICAL EXAMINATION Gen: This is a 70-year-old female. She is resting in bed and appears to be comfortable at rest. HEENT: Head is atraumatic, normocephalic. Pupils equal, round. Sclerae is anicteric. NECK: Supple. No JVD. No lymphadenopathy. No thyromegaly. LUNGS: Clear to auscultation. No wheezes or rhonchi. No intercostal retractions. HEART: Regular rate and rhythm. No murmur. ABDOMEN: Soft. Bowel sounds are present. No masses. No tenderness. EXTREMITIES: No pedal edema. No calf tenderness. NEUROLOGICAL: Patient is awake, alert and oriented x3. Cranial nerves 2 through 12 are grossly intact. ASSESSMENT AND PLAN 1. Lumbar back pain with disc herniation, scheduled for laminectomy decompression L4 5 today. Patient has been cleared medically for surgical intervention. Continue current pain management, patient requesting to try Kent for pain as she does not think tramadol is helping. Continue fentanyl, tramadol Valium and IV Solu-Medrol at 80 mg IV every 8 hours, Robaxin. 2. History of breast cancer. Continue Arimidex 1 mg oral daily. 3. Hypertension. Continue Dyazide 1 daily. 4. Hyperlipidemia. Continue atorvastatin 20 g daily. 5. Rheumatoid arthritis. Patient is on Arava 20 mg daily and Xeljanz XR 11 mg daily--both will be placed on hold 6. Hypothyroidism. Continue levothyroxine 50 g daily. 7. GI prophylaxis. Protonix daily. 8. DVT prophylaxis per orthopedics. DISCHARGE PLAN Home. Impression and plan of care have been directed as dictated by the signing physician. Kenia Valdez nurse practitioner acting as scribe for signing physician. Objective - Vital Signs Vital signs: Vital Signs Temp 98.4 F 10/27/20 05:46 Pulse 54 L 10/27/20 05:46 Resp 18 10/27/20 05:46 BP 135/82 10/27/20 05:46 Pulse Ox 93 L 10/27/20 05:46 Intake & Output 10/26/20 10/27/20 10/27/20 18:59 06:59 18:59 Other: Voiding Method Toilet Toilet # Voids 2 - Labs CBC & Chem 7: 10/26/20 12:15 10/26/20 12:15 Labs: Abnormal Lab Results - Last 24 Hours (Table) 10/26/20 10/26/20 10/26/20 Range/Units 12:15 12:15 12:15 WBC 11.5 H (3.8-10.6) k/uL Neutrophils # 10.8 H (1.3-7.7) k/uL Lymphocytes # 0.4 L (1.0-4.8) k/uL APTT 20.3 L (22.0-30.0) sec BUN 30 H (7-17) mg/dL Glucose 120 H (74-99) mg/dL POC Glucose (mg/dL) (75-99) mg/dL 10/26/20 10/26/20 10/27/20 Range/Units 17:06 20:08 06:54 WBC (3.8-10.6) k/uL Neutrophils # (1.3-7.7) k/uL Lymphocytes # (1.0-4.8) k/uL APTT (22.0-30.0) sec BUN (7-17) mg/dL Glucose (74-99) mg/dL POC Glucose (mg/dL) 157 H 120 H 161 H (75-99) mg/dL
--- NOTE | 2020-10-28 11:47 | P.PN ---
Subjective Progress Note Date: 10/28/20 HISTORY OF PRESENT ILLNESS This is a 70-year-old female patient of Dr. Goldsmith with past medical history of hypertension,hyperlipidemia, rheumatoid arthritis, osteoarthritis, breast cancer, BRCA2 status post bilateral mastectomy and chemotherapy completed in 2016, hypothyroidism. Patient states she saw Dr. Goldsmith in September and was placed on prednisone for 10 day course secondary to lumbar back pain with radiation down the left leg. She states she completed the course of steroids and had a follow-up visit on October 14. It seems that as soon as her prednisone was completed, pain returned. She complains of numbness and tingling in the left foot. Pain does not seem to be improving and continues to worsen over the past several weeks. She also is having some weakness of her left leg. She denies any loss of bowel or bladder control. Patient was also seen by chiropra ctor. Patient presented to [facility] emergency center yesterday. CAT scan of the lumbar spine revealed significant disc degeneration L2 through L3 4 L4 5. There is some vacuum disc none. There appears to be a disc herniation at L4 5 with some extrusion of material. There is foraminal stenosis L3 4 and L4 5. There is no obvious fracture. WBC 11.5, hemoglobin 12.5, platelet count 172. Electrolytes were normal. BUN 30 and creatinine 0.8. Blood sugar 120. Patient was admitted to the [facility] floor and she was seen last evening by pain management and is status post lumbar epidural steroid injection at the L4 5 level. Chest x-ray reveals no acute cardiopulmonary process. MRI of the lumbar spine reveals degenerative disc disease with disc herniation and probable sequestered disc fragment posterior to the L5 vertebral body and falling to the left lateral recess. Patient has been reevaluated by Dr. Yuen with plan for surgical intervention on for laminectomy decompression of L4 5. 10/27: Patient states that her pain is currently controlled and spasms are gone. She is tolerating [place]'s which seems to be improving her pain. She is scheduled for surgical intervention today. Blood sugars are running between 120s and 161. Patient's been afebrile, heart rate 54, blood pressure 135/82, pulse ox 93% on room air. 10/28: Patient states that her discomfort is much improved today. She states she did well yesterday following surgery. She has been ambulating in her room. Blood sugars are running between 123 and 204. Most likely, patient will be dis charged home tomorrow. REVIEW OF SYSTEMS Constitutional: No fever, no chills, no night sweats. No weight change. No weakness, fatigue or lethargy. No daytime sleepiness. EENT: No headache. No blurred vision or double vision, no loss of vision. No loss of Hearing, no ringing in the ears, no dizziness. No nasal drainage or congestion. No epistaxis. No sore throat. Lungs: No shortness of breath, cough, no sputum production. No wheezing. Cardiovascular: No chest pain, no lower extremity edema. No palpitations. No paroxysmal nocturnal dyspnea. No orthopnea. No lightheadedness or dizziness. No syncopal episodes. Abdominal: No abdominal pain. No nausea, vomiting. No diarrhea. No constipation. No bloody or tarry stools.. No loss of appetite. Genitourinary: No dysuria, increased frequency, urgency. No urinary retention. Musculoskeletal: No myalgias. No muscle weakness, reports gait dysfunction, no frequent falls. Reports back pain-improved. No neck pain. Integumentary: No wounds, no lesions. No rash or pruritus. No unusual bruising. No change in hair or nails. Neurologic: No aphasia. No facial droop. No change in mentation. No head injury. No headache. No paralysis. No paresthesia. Psychiatric: No depression. No anxiety. No mood swings. Endocrine: No abnormal blood sugars. No weight change. No excessive sweating or thirst. No cold intolerance. PHYSICAL EXAMINATION Gen: This is a 70-year-old female. She is resting in bed and appears to be comfortable at rest. HEENT: Head is atraumatic, normocephalic. Pupils equal, round. Sclerae is anicteric. NECK: Supple. No JVD. No lymphadenopathy. No thyromegaly. LUNGS: Clear to auscultation. No wheezes or rhonchi. No intercostal retractions. HEART: Regular rate and rhythm. No murmur. ABDOMEN: Soft. Bowel sounds are present. No masses. No tenderness. EXTREMITIES: No pedal edema. No calf tenderness. NEUROLOGICAL: Patient is awake, alert and oriented x3. Cranial nerves 2 through 12 are grossly intact. ASSESSMENT AND PLAN 1. Lumbar back pain with disc herniation, status post laminectomy decompression L4 5 on 10/27. Continue current pain management, continue [place] oral, fentanyl, tramadol Valium and IV Solu-Medrol at 80 mg IV every 8 hours, Robaxin. 2. History of breast cancer. Continue Arimidex 1 mg oral daily. 3. Hypertension. Continue Dyazide 1 daily. 4. Hyperlipidemia. Continue atorvastatin 20 g daily. 5. Rheumatoid arthritis. Patient is on Arava 20 mg daily and Xeljanz XR 11 mg daily--both will be placed on hold 6. Hypothyroidism. Continue levothyroxine 50 g daily. 7. GI prophylaxis. Protonix daily. 8. DVT prophylaxis per orthopedics. 9. Hyperglycemia secondary to steroids. Continue NovoLog scale DISCHARGE PLAN Home Saturday. Impression and plan of care have been directed as dictated by the signing physician. Kenia Valdez nurse practitioner acting as scribe for signing physician. Objective - Vital Signs Vital signs: Vital Signs Temp 98.7 F 10/28/20 05:00 Pulse 67 10/28/20 05:00 Resp 16 10/28/20 05:00 BP 106/63 10/28/20 05:00 Pulse Ox 95 10/28/20 05:00 Intake & Output 10/27/20 10/28/20 10/28/20 18:59 06:59 18:59 Intake Total 950 1960 Output Total 50 Balance 900 1960 Intake: IV 950 Intake, IV Titration 1000 Amount Sodium Chloride 0.9% 1, 900 000 ml @ 75 mls/hr IV . [id number] JO ANN Rx#:[id number] ceFAZolin 2 gm In Sodium 100 Chloride 0.9% 50 ml @ 100 mls/hr IVPB Q8H JO ANN Rx#: [id number] Oral 960 Output: Estimated Blood Loss 50 Other: Voiding Method Toilet # Voids 1 - Labs CBC & Chem 7: 10/26/20 12:15 10/26/20 12:15 Labs: Abnormal Lab Results - Last 24 Hours (Table) 10/27/20 10/27/20 10/27/20 Range/Units 10:28 16:59 20:06 POC Glucose (mg/dL) 103 H 204 H 132 H (75-99) mg/dL 10/28/20 Range/Units 07:12 POC Glucose (mg/dL) 128 H (75-99) mg/dL
[2020-10-28 11:52] VITALS: BP 100/62; PULSE 76; RESP 20; TEMP 98.4
--- NOTE | 2020-10-28 12:44 | P.DS ---
Providers Date of admission: 10/27/20 22:15 Attending physician: Woo Vincent Consults: 10/25/20 12:49 Consult Physician Routine Consulting Provider: Brenda Goldsmith Consult Reason/Comments: surgical clearance Do you want consulting provider notified?: Yes Primary care physician: Brenda Goldsmith Hospital Course: The patient presented on the day of admission as per their operative note. She was initially admitted because she had a disc herniation with weakness at her left lower extremity. She is having profound trouble with mobilization and ambulation. She was on aggressive conservative treatments with medication and with interventional pain management was not having any relief. She is found have a very large disc herniation which correlated well with her lower extremity weakness and symptoms. We discussed possibly surgical intervention and with the patient's weakness and condition she elected proceed with surgery as per her operative note. She underwent laminectomy decompression with discectomy on the left and feels that she is doing much better in terms of her lower extremities today. She saw soreness at her lower back as expected from her surgery but she is doing much better and annulus in the hallways. Physical Exam The incision site is clean dry and intact. There is no erythema no drainage. There is no purulence no evidence of infection. Abdomen soft and nontender. Chest has good excursion with deep inspiration and expiration. The patient has active and passive range of motion intact at the upper and lower extremities. There is no acute change in neurologic status.She still has some weakness with wrist flexion left lower extremity. Otherwise she is intact Hospital Course postoperative day #1 status post laminectomy decompression with discectomy with good resolution of left lower extremity radiculopathy and some improvement of her symptoms at her leg. The patient had failed aggressive conservative treatment and with her weakness and her continued issues we felt that surgery would be a good option for her. She underwent her surgery yesterday as per her operative note. The patient has been making good progress postoperatively. They have completed the prophylactic antibiotics without any signs or symptoms of infection. The patient has been able to advance their diet, and is tolerating diet adequately. The pain was initially controlled with IV medications and is now controlled appropriately with oral medications. The patient has been able to increase their mobilization. The patient has progressed appropriately. I think they are in good stable condition for discharge today. They will be sent home with appropriate prescriptions. I answered their questions to the best of my ability in a language that they can understand and they are agreeable with the plan. They will follow up as directed. Patient Condition at Discharge: Good Plan - Discharge Summary Discharge Rx Participant: No New Discharge Prescriptions: New HYDROcodone/APAP 5-325MG [Rickreall 5] 1 each PO Q6HR PRN #28 tab PRN Reason: Pain Sennosides-Docusate Sodium [Senokot-S] 1 each PO DAILY tab Continue Cyanocobalamin (Vitamin B-12) [Vitamin B-12] 500 mcg PO DAILY Anastrozole [Arimidex] 1 mg PO DAILY Calcium Carbonate [Calcium] 1,200 mg PO DAILY Aspirin [Adult Low Dose Aspirin EC] 81 mg PO DAILY Cholecalciferol [Vitamin D3 (25 Mcg = 1000 Iu)] 50 mcg PO DAILY Folic Acid 1 mg PO DAILY Leflunomide [Arava] 20 mg PO DAILY Tofacitinib Citrate [Xeljanz Xr] 11 mg PO DAILY Vitamin E (Dl,Tocopheryl Acet) [Vitamin E] 1,000 unit PO DAILY Naproxen Sodium [Aleve] 440 mg PO DAILY PRN PRN Reason: Pain Acetaminophen Tab [Tylenol] 650 mg PO Q4H PRN PRN Reason: Pain Triamterene-Hctz 37.5-25Mg [Dyazide 37.5-25 Capsule] 1 cap PO DAILY Phentermine HCl [Adipex-P] 37.5 mg PO DAILY Ibuprofen [Motrin Ib] 400 mg PO Q8H PRN PRN Reason: Pain methocarbamoL [Robaxin] 500 mg PO TID PRN PRN Reason: Muscle Spasm Levothyroxine Sodium [Synthroid] 50 mcg PO DAILY Atorvastatin [Lipitor] 20 mg PO DAILY Ferrous Sulfate [Iron (65 MG Elemental)] 325 mg PO DAILY Discharge Medication List Cyanocobalamin (Vitamin B-12) [Vitamin B-12] 500 mcg PO DAILY 05/27/15 [History] Anastrozole [Arimidex] 1 mg PO DAILY 10/23/16 [History] Calcium Carbonate [Calcium] 1,200 mg PO DAILY 10/23/16 [History] Aspirin [Adult Low Dose Aspirin EC] 81 mg PO DAILY 11/05/19 [History] Cholecalciferol [Vitamin D3 (25 Mcg = 1000 Iu)] 50 mcg PO DAILY 11/05/19 [History] Folic Acid 1 mg PO DAILY 11/05/19 [History] Leflunomide [Arava] 20 mg PO DAILY 11/05/19 [History] Tofacitinib Citrate [Xeljanz Xr] 11 mg PO DAILY 11/05/19 [History] Vitamin E (Dl,Tocopheryl Acet) [Vitamin E] 1,000 unit PO DAILY 11/05/19 [History] Acetaminophen Tab [Tylenol] 650 mg PO Q4H PRN 10/25/20 [History] Atorvastatin [Lipitor] 20 mg PO DAILY 10/25/20 [History] Ferrous Sulfate [Iron (65 MG Elemental)] 325 mg PO DAILY 10/25/20 [History] Ibuprofen [Motrin Ib] 400 mg PO Q8H PRN 10/25/20 [History] Levothyroxine Sodium [Synthroid] 50 mcg PO DAILY 10/25/20 [History] Naproxen Sodium [Aleve] 440 mg PO DAILY PRN 10/25/20 [History] Phentermine HCl [Adipex-P] 37.5 mg PO DAILY 10/25/20 [History] Triamterene-Hctz 37.5-25Mg [Dyazide 37.5-25 Capsule] 1 cap PO DAILY 10/25/20 [History] methocarbamoL [Robaxin] 500 mg PO TID PRN 10/25/20 [History] HYDROcodone/APAP 5-325MG [Rickreall 5] 1 each PO Q6HR PRN #28 tab 10/28/20 [Rx] Sennosides-Docusate Sodium [Senokot-S] 1 each PO DAILY tab 10/28/20 [Rx] Follow up Appointment(s)/Referral(s): Brenda Goldsmith MD [Primary Care Provider] - 1 Week Woo Vincent DO [Doctor of Osteopathic Medicine] - 3 Weeks Activity/Diet/Wound Care/Special Instructions: Keep site clean. May shower with waterproof Tegaderm intact. Do not soak in a tub. After 72 hours postoperatively, patient May remove dressing and then may shower with area uncovered. Leave glue intact and allow it to fray off on its own. May ambulate as tolerated. Avoid heavy or rigorous activity. No repetitive bending twisting or lifting. No overhead work. Discharge/Stand Alone Forms: Anes Pain/Wismer Instructions Discharge Disposition: HOME SELF-CARE
[2020-10-29] MEDS ORDERED: IBUPROFEN 600 MG TAB PO PRN (12:44)
== END 2020-10-28 14:53 | disposition home or self-care (01) | DRG 520 ==
LOC: EC 06:03 → 5NMEDONC 08:37 → 6NMEDSUR 15:31 → 5NMEDONC 15:33 → OBSVTOIN 10-27 22:15
PROVIDERS: ADMIT Orthopaedic Surgery Orthopaedic Surgery of the Spine; ATTEND Orthopaedic Surgery Orthopaedic Surgery of the Spine
PROC: 3E0R33Z Introduction of Anti-inflammatory into Spinal Canal, Percutaneous Approach (ICD-10-PCS; 2020-10-25)
PROC: 01NB0ZZ Release Lumbar Nerve, Open Approach (ICD-10-PCS; 2020-10-27)
PROC: 0SB20ZZ Excision of Lumbar Vertebral Disc, Open Approach (ICD-10-PCS; principal; 2020-10-27 11:45)
DX: M51.16 Intervertebral disc disorders with radiculopathy, lumbar region (principal); E78.5 Hyperlipidemia, unspecified; M19.90 Unspecified osteoarthritis, unspecified site; M06.9 Rheumatoid arthritis, unspecified; E03.9 Hypothyroidism, unspecified; M48.061 Spinal stenosis, lumbar region without neurogenic claudication; I10 Essential (primary) hypertension; Z85.3 Personal history of malignant neoplasm of breast; Z90.13 Acquired absence of bilateral breasts and nipples; Z87.891 Personal history of nicotine dependence; Z79.82 Long term (current) use of aspirin; Z79.899 Other long term (current) drug therapy; Z79.890 Hormone replacement therapy; Z79.811 Long term (current) use of aromatase inhibitors; Z91.040 Latex allergy status; Z88.5 Allergy status to narcotic agent; Z91.048 Other nonmedicinal substance allergy status; Z90.710 Acquired absence of both cervix and uterus; Z80.8 Family history of malignant neoplasm of other organs or systems; Z82.49 Family history of ischemic heart disease and other diseases of the circulatory system; Z80.41 Family history of malignant neoplasm of ovary
CPT/HCPCS: 62323; 71046; 72020; 72114; 72131; 72148; 80048; 81003; 85025; 85610; 85730; 93005; 96374; 96375; 99152; 99284

== ENCOUNTER 2020-12-16 12:55 | Day surgery (SDC) | payer MEDICARE ==
[2020-12-13 13:11] VITALS: BMI 27.9
[~2020-12-16 12:55] MED LIST changes: +DEXAMETHASONE SOD PHOSPHATE 4 MG/ML 1 ML VIAL IV ONE; +MIDAZOLAM 2 MG/2 ML VIAL IV PRN; +ONDANSETRON 4 MG/2 ML VIAL IVP ONE; +fentaNYL (PF) 50 MCG/ML 2 ML AMP IV PRN
[2020-12-16] MEDS ORDERED: fentaNYL (PF) 50 MCG/ML 2 ML AMP ONE (14:38)
[2020-12-16] MEDS ORDERED: MIDAZOLAM 2 MG/2 ML VIAL ONE (14:38)
[2020-12-16] MEDS ORDERED: LIDOCAINE 1% INJ 10MG/ML (20 ML MDV) ONE (14:38)
[2020-12-16] MEDS ORDERED: PROPOFOL 10 MG/ML 20 ML VIAL IV ONE (14:38)
[2020-12-16] MEDS ORDERED: BUPIVACAINE (PF) 0.25% 30 ML VIAL SQ ONE (14:40)
[2020-12-16 16:04] VITALS: TEMP 97.4
[2020-12-16 16:47] VITALS: RESP 98
[2020-12-16 16:57] VITALS: BP 122/80; PULSE 86
--- NOTE | 2020-12-16 18:18 | P.OP ---
Date of Procedure: 12/16/20 Preoperative Diagnosis: 1. Deformity of left great toe. 2. Hammertoe second digit right foot Postoperative Diagnosis: 1. Same 2. Same Procedure(s) Performed: 1. Interphalangeal joint arthrodesis left great toe 2. Tenotomy and capsulotomy second metatarsal phalangeal joint right foot Implants: 4.3 mm CREED screw Anesthesia: DOMINIQUEA Surgeon: Nader Mclain Estimated Blood Loss (ml): 3 Pathology: none sent Condition: stable Disposition: PACU Description of Procedure: The patient was brought into the operating room placed on table supine position. Timeout was taken to confirm correct patient identifiers, correct procedure, and correct site of surgery. When the room was in agreement the patient was induced and placed under general anesthesia. Tourniquets were placed on both ankles. Then a total of 30 mL 0.25% Marcaine was injected in both feet. Both feet were then prepped and draped usual manner. The right foot was addressed first and it was exsanguinated and the tourniquet inflated to 250 motors mercury. A small incision was made over the dorsal aspect of the second metatarsal phalangeal joint just medial to the long extensor tendon. Blunt dissection was performed through the subcutaneous layer, careful to identify, avoid, and retract any neurovascular structures and cauterize any bleeding vessels. Blunt dissection was continued down to level the second metatarsal phalangeal joint capsule. Scalpel was used to perform a dorsal capsulotomy and release the long extensor tendon. The wound is then irrigated with sterile saline. Subcu closure was done for Monocryl and skin closure was done with 4-0 Monocryl utilizing a running subcuticular stitch. Then attention was directed to the left great toe where a transverse incision was made over the inner phalangeal joint. The incision was deepened down through the subcutaneous layer down to the joint capsule careful to identify, avoid, and retract any neurovascular structures and cauterize any bleeding vessels. An incision was made directly through the capsule and extensor tendon to expose interphalangeal joint. The head of the proximal phalanx was resected with a sagittal saw. Then the articular surface of the base of the distal phalanx was also resected with a sagittal saw. The 2 resected ends were brought together and the saw blade inserted to plane the surfaces so there was good flat bony contact. The wound is then thoroughly irrigated with sterile saline. The guidewire for the cannulated screw was then inserted at the distal tip of the great toe and under direct fluoroscopic guidance advanced through the distal phalanx and advanced through the proximal phalanx to the base. Then the cannulated screws inserted across the guidewire was then advanced until all threads were distal to the arthrodesis site and the arthrodesis site compressed. Once the screw was fully inserted which was confirmed under fluoroscopy, the arthrodesis site was inspected both fluoroscopically and using direct visualization and was noted that there was full bony contact and good compression at the arthrodesis site. The wound is then irrigated with sterile saline. Deep closure was done with 2-0 Vicryl. Subcu closure was done with 4-0 Monocryl. And skin closure done with 4-0 nylon. The insertion point for the screw at the distal tip of the toe was also closed with 4-0 nylon. Nonadherent dressing was placed over the incisions on both feet. Dry sterile dressings applied to both feet. The tourniquets were released and capillary refill return to all digits on both feet. Anesthesia was reversed and the patient was taken recovery with vital signs stable.
== END 2020-12-16 17:18 | disposition home or self-care (01) ==
LOC: OR 12:55
PROVIDERS: ATTEND Podiatrist
DX: M20.62 Acquired deformities of toe(s), unspecified, left foot (principal); M20.41 Other hammer toe(s) (acquired), right foot; E78.5 Hyperlipidemia, unspecified; E07.9 Disorder of thyroid, unspecified; M06.9 Rheumatoid arthritis, unspecified; Z79.82 Long term (current) use of aspirin; Z88.5 Allergy status to narcotic agent; Z88.8 Allergy status to other drugs, medicaments and biological substances; Z85.3 Personal history of malignant neoplasm of breast; Z87.891 Personal history of nicotine dependence; Z79.899 Other long term (current) drug therapy
CPT/HCPCS: 28285; 28270; C1713; J2250; J1100; J0690; J2405; J2001; J3010; J2704

== ENCOUNTER → 2021-04-20 | Outpatient (CLI) | payer MEDICARE ==
[2021-04-20 18:47] LABS: Basophils # (A) 0.03 X 10*3/uL (0.00-0.10); Basophils % (A) 0.6 %; Eosinophils # (A) 0.04 X 10*3/uL (0.04-0.35); Eosinophils % (A) 0.8 %; HCT 37.6 % (37.2-46.3); Lymphocytes # (A) 1.95 X 10*3/uL (0.90-5.00); Lymphocytes % (A) 37.1 %; MCH 29.1 pg (27.0-32.0); MCHC 31.9 g/dL (32.0-37.0); MCV 91.3 fL (80.0-97.0); Monocytes # (A) 0.54 X 10*3/uL (0.20-1.00); Monocytes % (A) 10.3 %; Neutrophils # (A) 2.69 X 10*3/uL (1.80-7.70); Platelet Count 198 X 10*3/uL (140-440); RBC 4.12 X 10*6/uL (4.10-5.20); RDW 14.1 % (11.5-14.5); WBC 5.26 X 10*3/uL (4.50-10.00)
[2021-04-20 20:01] LABS: Erythrocyte Sedimentation Rate 33 mm/Hr (0-30)
[2021-04-20 21:03] LABS: Protein, Total 6.7 g/dL (6.2-8.2)
[2021-04-20 21:15] LABS: % Iron Saturation 29.78 (12.00-45.00); African American GFR (CKD) 101.7 (60.0-200.0); Albumin 4.7 g/dL (3.8-4.9); Blood Urea Nitrogen 15.7 mg/dL (9.0-27.0); Iron 113 ug/dL (50-170); Non-African American GFR(CKD) 87.8 (60.0-200.0); Total Iron Binding Capacity 379 ug/dL (228-460)
[2021-04-20 23:53] LABS: ALT 33 U/L (8-44); AST 30 U/L (13-35); Alkaline Phosphatase 62 U/L (41-126)
[2021-04-21 06:41] LABS: Anti-DNA, DS unit <1.0 IU/mL; Anti-Smith Ab Interp NEGATIVE (NEGATIVE); Cyclic Citrull Pep IgG Unit <0.5 U/mL; Cyclic Citrullinated Pep IgG NEGATIVE (NEGATIVE); DNA Double-Stranded NEGATIVE (NEGATIVE)
[2021-04-21 08:06] LABS: C Reactive Protein <0.30 mg/dL (0.00-0.80); Rheumatoid Factor, Qnt <10 IU/mL (0-15)
[2021-04-21 15:23] LABS: Gamma Globulin 0.69 g/dL (0.70-1.50)
== END | disposition home or self-care (01) ==
LOC: LABWHC1 14:05
PROVIDERS: ATTEND Physician Assistant Medical
DX: M06.00 Rheumatoid arthritis without rheumatoid factor, unspecified site (principal)
CPT/HCPCS: 36415; 82040; 82565; 82728; 83540; 83550; 83735; 84075; 84100; 84165; 84450; 84460; 84520; 85025; 85652; 86038; 86140; 86200; 86225; 86235; 86334; 86431

== ENCOUNTER 2021-06-23 05:40 | Day surgery (SDC) | payer MEDICARE ==
[2021-06-22 13:05] VITALS: BMI 29.0
[2021-06-23] MEDS ORDERED: ONDANSETRON 4 MG/2 ML VIAL IVP ONE (06:11)
[2021-06-23] MEDS ORDERED: LACTATED RINGERS 1,000 ML IV SCH (06:11)
[2021-06-23] MEDS ORDERED: DEXAMETHASONE SOD PHOSPHATE 4 MG/ML 1 ML VIAL IV ONE (06:11)
[2021-06-23] MEDS ORDERED: LIDOCAINE 1% (10MG/ML) FOR IV START INTRADERMA ONE (06:25)
[2021-06-23] MEDS ORDERED: LIDOCAINE 1% INJ 10MG/ML (20 ML MDV) ONE (07:10)
[2021-06-23] MEDS ORDERED: fentaNYL (PF) 50 MCG/ML 2 ML AMP ONE (07:10)
[2021-06-23] MEDS ORDERED: PHENYLEPHRINE-0.9% NACL SYG 1,000 MCG/10 ML SYRINGE ONE (07:10)
[2021-06-23] MEDS ORDERED: MIDAZOLAM 2 MG/2 ML VIAL ONE (07:10)
[2021-06-23] MEDS ORDERED: PROPOFOL 10 MG/ML 20 ML VIAL IV ONE (07:10)
[2021-06-23] MEDS ORDERED: BUPIVACAINE (PF) 0.25% 30 ML VIAL SQ ONE ×2 (07:11→07:30)
[2021-06-23] MEDS ORDERED: ceFAZolin 1,000 MG in SODIUM CHLORIDE 0.9% 1,000 ML IRRIGATION ONE (07:15)
[2021-06-23 08:42] VITALS: TEMP 97
[2021-06-23 08:54] VITALS: RESP 16
[2021-06-23 09:56] VITALS: BP 141/88; PULSE 82
--- NOTE | 2021-06-23 13:41 | P.OP ---
Date of Procedure: 06/23/21 Preoperative Diagnosis: 1. 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 Tailor's bunion right foot Postoperative Diagnosis: 1. Same 2. Same Procedure(s) Performed: 1. Osteotomy of proximal phalanx right great toe 2. Partial fifth metatarsal head resection. Implants: Quinones Medicla Augment Arthrex compression staple Anesthesia: ANAIS Surgeon: Nader Mclain Estimated Blood Loss (ml): 1 Pathology: none sent Condition: stable Disposition: PACU Description of Procedure: The patient was brought into the operative room placed on table supine position. Timeout was taken to confirm correct patient identifiers, correct site of surgery and when all staff in the room in agreement, the patient was induced and placed under general anesthesia. A well-padded tourniquet was placed on the right ankle. Then 20 mL of 0.25% Marcaine was injected as a right ankle block. The right foot was then prepped and draped usual manner. The foot was exsanguinated with an Esmarch bandage and the tourniquet inflated to 250 mmHg. Attention was directed over the dorsal lateral aspect of the fifth metatarsal phalangeal joint where a linear incision was made between the extensor tendon and the neurovascular structures. The incision was deepened to the subcutaneous tissue careful to identify, avoid, and retract any neurovascular structures and cauterize any bleeding vessels. Blunt dissection was carried down to the joint capsule over the fifth metatarsal phalangeal joint. A linear capsulotomy was performed of the dorsal lateral aspect of the joint. The capsule was reflected from its osseous attachments of the lateral side of the fifth metatarsal head. A sagittal saw was then used to resect the lateral portion of the fifth metatarsal head as well as a dorsal lateral last. All roughened edges were smoothed. Then the soft tissue was reapproximated over the repair site to make sure enough bony been removed. The wound is thoroughly irrigated with antibiotic saline. Capsular closure was done with 2-0 Vicryl. Subcu closure done for Monocryl. Skin closure done with3-0 Stratifix in a running subcuticular manner. Then attention was directed over the great toe. A linear medial incision was made over the proximal phalanx between the neurovascular structures. The incision was deepened down to the saphenous tissue careful to identify, avoid, and retract any neurovascular structures and cauterize any bleeding vessels. The periosteum over the proximal phalanx was left intact and then the side of the nonunion was identified. The screw that was in place for the previous osteotomy was easily backed out because it was very loose. Then utilizing a combination of curettes and a Marko the soft tissue that was interposed between the bony ends was completely divided down to bone. Then the osteotomy was completely reduced and a sagittal saw blade was used to plane the bony surfaces so there is flat contact. Quinones Securus augment was then injected between the segments of bone for the osteotomy as well as down the previous path of the screw. The osteotomy was then fully reduced and then the drill guide for compression staple was placed over the medial aspect of the proximal phalanx. Under direct fluoroscopic visualization the drill guide was aligned so that it was in the healthy bone on either side of the osteotomy. The drill holes were made and the pins inserted into the drill holes for placement. The osteotomy was fully reduced again the guidepins were removed the compression staple was then inserted into the drill holes. Then the apparel rental clerk was released allowing the legs the padmini to compress was then further reduced the osteotomy. Or scopic imaging confirmed proper placement of the staple as well as reduction of the osteotomy site. Clinically there was no motion noted at the osteotomy site. The wound is then thoroughly irrigated with antibiotic saline. Any additional augment was then placed down the canal for the screw as well as any gaps in the osteotomy. Then the deep closure was done with 2-0 Vicryl, subcu closure done for Monocryl skin closure done with 3-0 Stratafix in a running subcuticular manner. Dermal glue was applied over both incisions and allowed to dry. Steri- Strips are placed over the incisions. Nonadherent gauze placed over the incisions and a bulky dry dressing applied to the right foot. The tourniquet was released and capillary refill return to all digits on the right foot. The patient was then placed in a short fracture boot with ankle neutral position anesthesia was reversed and the patient was taken recovery with vital signs stable.
== END 2021-06-23 10:25 | disposition home or self-care (01) ==
LOC: OR 05:40
PROVIDERS: ATTEND Podiatrist
DX: S92.414 Nondisplaced fracture of proximal phalanx of right great toe (principal); M21.621 Bunionette of right foot; E78.5 Hyperlipidemia, unspecified; M19.90 Unspecified osteoarthritis, unspecified site; M06.9 Rheumatoid arthritis, unspecified; Z97.3 Presence of spectacles and contact lenses; Z85.9 Personal history of malignant neoplasm, unspecified; Z90.710 Acquired absence of both cervix and uterus; Z98.890 Other specified postprocedural states; Z90.5 Acquired absence of kidney; Z79.890 Hormone replacement therapy; Z79.899 Other long term (current) drug therapy; Z79.82 Long term (current) use of aspirin; Z91.040 Latex allergy status; Z88.5 Allergy status to narcotic agent; Z88.2 Allergy status to sulfonamides; Z91.09 Other allergy status, other than to drugs and biological substances; Z87.891 Personal history of nicotine dependence
CPT/HCPCS: 28160; 28295; C1713 ×2; J2250; J1100; J0690 ×2; J2405; J2001; J3010; J2370; J2704

== ENCOUNTER 2021-10-06 11:26 | Day surgery (SDC) | payer MEDICARE ==
[2021-10-06] MEDS ORDERED: LIDOCAINE 1% (10MG/ML) FOR IV START INTRADERMA ONE (11:56)
[2021-10-06] MEDS ORDERED: fentaNYL (PF) 50 MCG/ML 2 ML AMP IVP ONE (13:00)
[2021-10-06] MEDS ORDERED: fentaNYL (PF) 50 MCG/ML 2 ML AMP ONE (13:23)
[2021-10-06] MEDS ORDERED: MIDAZOLAM 2 MG/2 ML VIAL ONE (13:23)
[2021-10-06] MEDS ORDERED: LIDOCAINE 2% INJ 20 MG/ML (2 ML VIAL) ONE (13:23)
[2021-10-06] MEDS ORDERED: PROPOFOL 10 MG/ML 20 ML VIAL IV ONE (13:23)
[2021-10-06] MEDS ORDERED: ceFAZolin 1,000 MG in SODIUM CHLORIDE 0.9% 1,000 ML IRRIGATION ONE (13:29)
[2021-10-06] MEDS ORDERED: BUPIVACAINE (PF) 0.25% 30 ML VIAL SQ ONE (13:45)
[2021-10-06 14:31] VITALS: TEMP 96.9
--- NOTE | 2021-10-06 14:35 | P.OP ---
Date of Procedure: 10/06/21 Preoperative Diagnosis: Nonunion of osteotomy right great toe Postoperative Diagnosis: Same Procedure(s) Performed: 1. Resection of nonunion with placement of mixed auto- and allograft bone right great toe 2. Harvesting of allograft right calcaneus Anesthesia: ANAIS Surgeon: Nader Mclain IV fluids (ml): 3 Pathology: none sent Condition: stable Disposition: PACU Description of Procedure: The patient was brought into the operating room and placed on table in supine position. Timeout was taken to confirm correct patient identifiers, correct site of surgery, and correct laterality of procedure. Once the room was in agreement with the timeout, the patient was induced and an placed under general anesthesia. A well-padded tourniquet was placed on the right ankle. 15 mL of 0.25% Marcaine was injected as a block around the first metatarsal head as well as an infiltrative block over the medial side of the calcaneus. The right foot was then prepped and draped in the usual manner. Utilizing fluoroscopic visualization, a metallic pointer was used to identify the location of the nonunion over the great toe. Once that was identified and marked, an incision was made over the area. It was bluntly dissected down to the area of nonunion. Under fluoroscopic visualization, instrumentation was placed into the nonunion site. Then a rotary bur was inserted and under live fluoroscopic visualization, the bur was manipulated so that it was resecting all the nonviable tissue between the osseous segments. Once that was thoroughly cleaned out the bur was used to lightly debridable bony surfaces to promote bleeding bone. Once the resection was complete, attention was directed over the medial aspect of the calcaneus just anterior to the Achilles insertion. A small stab incision was made to the skin and bluntly dissected down to bone. A small drill hole was made through the medial cortex. Curettes were inserted into the drill hole to harvest medullary bone and obtained any liquid marrow aspirate The marrow aspirate and the autograft were then mixed with an allograft material until thoroughly combined. Then this combination was inserted into the nonunion site. Periodically fluoroscopy would be used to check the placement of the filler. Bone graft material was very obvious on fluoroscopy and quickly filled the entire gap. Once there was satisfactory filling of the void with the graft material, the wound was thoroughly irrigated as was the calcaneal incision. Both incisions then closed with 3-0 nylon. Jumpstart dressing was placed over both incisions then a bulky dry dressing applied to the right foot. The tourniquet was released and capillary refill return to all digits on the right foot. The patient tolerated the above procedure and anesthesia well. Patient went to recovery with vital signs stable
[2021-10-06] MEDS ORDERED: LACTATED RINGERS 1,000 ML IV ONE (15:06)
[2021-10-06 15:17] VITALS: RESP 18
[2021-10-06 15:32] VITALS: BP 117/79; PULSE 89
== END 2021-10-06 15:48 | disposition home or self-care (01) ==
LOC: OR 11:26
PROVIDERS: ATTEND Podiatrist
DX: M96.89 Other intraoperative and postprocedural complications and disorders of the musculoskeletal system (principal); M96.0 Pseudarthrosis after fusion or arthrodesis; E78.5 Hyperlipidemia, unspecified; M06.9 Rheumatoid arthritis, unspecified; R63.5 Abnormal weight gain; M19.90 Unspecified osteoarthritis, unspecified site; E07.9 Disorder of thyroid, unspecified; Z85.3 Personal history of malignant neoplasm of breast; Z97.3 Presence of spectacles and contact lenses; Z98.891 History of uterine scar from previous surgery; Z98.890 Other specified postprocedural states; Z90.710 Acquired absence of both cervix and uterus; Z87.891 Personal history of nicotine dependence; Z79.82 Long term (current) use of aspirin; Z79.811 Long term (current) use of aromatase inhibitors; Z79.890 Hormone replacement therapy; Z79.899 Other long term (current) drug therapy; Z91.040 Latex allergy status; Z88.5 Allergy status to narcotic agent; Z88.2 Allergy status to sulfonamides; Z91.09 Other allergy status, other than to drugs and biological substances
CPT/HCPCS: 20999; 20900; C1713; J2250; J1100; J0690 ×2; J2405; J3010; J2704; J2001

== ENCOUNTER → 2021-10-19 | Outpatient (CLI) | payer MEDICARE | END | disposition home or self-care (01) | LOC: LABMAIN 17:32 | PROVIDERS: ATTEND Internal Medicine Rheumatology | DX: Z53.9 Procedure and treatment not carried out, unspecified reason (principal) ==

== ENCOUNTER 2022-04-13 09:09 | Day surgery (SDC) | payer MEDICARE ==
[2022-04-13] MEDS ORDERED: ONDANSETRON 4 MG/2 ML VIAL ONE (09:28)
[2022-04-13] MEDS ORDERED: LIDOCAINE 1% (10MG/ML) FOR IV START INTRADERMA ONE (09:39)
[2022-04-13] MEDS ORDERED: LACTATED RINGERS 1,000 ML IV ONE ×2 (09:40→11:55)
[2022-04-13] MEDS ORDERED: DEXAMETHASONE SOD PHOSPHATE 4 MG/ML 1 ML VIAL IVP ONE (09:52)
[2022-04-13] MEDS ORDERED: ONDANSETRON 4 MG/2 ML VIAL IVP ONE (09:52)
[2022-04-13] MEDS ORDERED: LIDOCAINE 1% INJ 10MG/ML (20 ML MDV) ONE (09:57)
[2022-04-13] MEDS ORDERED: MIDAZOLAM 2 MG/2 ML VIAL IVP ONE ×2 (10:01)
[2022-04-13] MEDS ORDERED: PHENYLEPHRINE-0.9% NACL SYG 1,000 MCG/10 ML SYRINGE ONE (10:45)
[2022-04-13] MEDS ORDERED: LIDOCAINE 2% INJ 20 MG/ML (2 ML VIAL) ONE (10:45)
[2022-04-13] MEDS ORDERED: fentaNYL (PF) 50 MCG/ML 2 ML AMP ONE (10:45)
[2022-04-13] MEDS ORDERED: PROPOFOL 10 MG/ML 20 ML VIAL IV ONE (10:45)
[2022-04-13] MEDS ORDERED: DEXAMETHASONE SOD PHOSPHATE 4 MG/ML 1 ML VIAL ONE (10:45)
[2022-04-13] MEDS ORDERED: ROPIVACAINE 5 MG/ML 30 ML VIAL ONE (10:45)
[2022-04-13] MEDS ORDERED: MIDAZOLAM 2 MG/2 ML VIAL ONE (10:45)
--- NOTE | 2022-04-13 10:45 | P.ANPRN ---
Procedure Note - Anesthesia - Nerve Block Performed Right Popliteal Single Time Out Performed: Yes Date of Procedure: 04/13/22 Location of Patient: PreOp Indication: Acute Post-Operative Pain, Dx/Pain Location (Right foot) Specifically requested for management of pain by DrSukumar: Nader Mclain Sedation Type: Sedate with meaningful contact maintained Position: Left Lateral Catheter: None Needle Types: Pajunk Needle Gauge: 21 (100 mm) Ultrasound used to visualize needle placement: Yes Ultrasound used to observe medication spread: Yes Injectate: 0.5% Ropivacaine (see comment for volume) (25 cc + 4 mg of decadron) Blood Aspirated: No Pain Paresthesia on Injection Noted: No Resistance on Injection: Normal Image Stored and Saved: Yes Events: Uneventful and Well Tolerated Right Saphenous Nerve Block Single Date of Procedure: 04/13/22 Location of Patient: PreOp Indication: Acute Post-Operative Pain, Requested by Surgeon Specifically requested for management of pain by : Nader Mclain Sedation Type: Sedate with meaningful contact maintained Preparation: Sterile Prep Position: Supine Catheter: None Needle Types: Other (see comment) (25 G needle) Ultrasound used to visualize needle placement: No Ultrasound used to observe medication spread: No Injectate: 0.5% Ropivacaine (see comment for volume) (5 cc) Blood Aspirated: No Pain Paresthesia on Injection Noted: No Resistance on Injection: Normal Image Stored and Saved: No Events: Other (see comment)
[2022-04-13 12:10] VITALS: RESP 16; TEMP 97.5
[2022-04-13] MEDS ORDERED: HYDROcodone/APAP 5-325MG 1 EACH TAB PO ONE (12:55)
[2022-04-13] MEDS ORDERED: HYDROcodone/APAP 5-325MG 1 EACH TAB ONE (12:57)
[2022-04-13 13:15] VITALS: BP 124/79; PULSE 78
--- NOTE | 2022-04-18 17:41 | P.OP ---
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 Repair nonunion right great toe 2. Harvesting of calcaneal bone graft right foot Implants: Quinones medical augment Anesthesia: DOMINIQUEA Surgeon: Nader Mclain Estimated Blood Loss (ml): 1 Pathology: none sent Condition: stable Disposition: PACU Description of Procedure: The patient was brought into the operating room and placed on table in the supine position. Timeout was taken to confirm correct patient identifiers, correct rally of surgery, and correct procedure. Once the staff in the room were in agreement timeout, the patient was induced and placed under general anesthesia. A well-padded tourniquet was placed on the right ankle and the right foot was then prepped and draped usual manner. The right foot was exsangu inated and the tourniquet inflated to 250 motors mercury. Attention was first directed over the lateral aspect of the calcaneus. An incision was made in the safe zone of the calcaneus between the Achilles tendon and peroneal tendons. The incision was deepened down to the saphenous tissue careful to identify, avoid, and retract any neurovascular structures and cauterize any bleeding vessels. Blunt dissection was then continued down to the periosteum overlying the calcaneus. Blunt instrumentation was inserted to find the superior border of the calcaneus a sagittal saw was then used to cut the graft from the lateral wall the calcaneus. An osteotome was then inserted and then the graft freed and brought into the surgical field. Then attention directed over the dorsomedial aspect of the great toe, where an incision was made to the long extensor tendon and encompassing the proximal phalanx. The incision was deepened down to the saphenous tissue careful to identify, avoid, and retract any neurovascular structures and cauterize any bleeding vessels. Sharp dissection was then carried down directly to the proximal phalanx and then the soft tissue reflected off the proximal phalanx. The blade was inserted in the area of nonunion and easily plunged into the area. Utilizing a combination of Mendoza and curettes the fibrotic tissue between the bone fragments was removed until medullary bone was exposed. The compression staple that had been previously ski instructor was also removed at this time is was no longer purchasing the bone effectively. The nonunion site was then distracted f or the placement of the bone graft. Fluoroscopy was used to confirm that the graft was making full contact and that the length of the proximal phalanx was restored. There was then thoroughly irrigated with antibiotic saline. With further distraction we were able to inject augment between the bone graft and the area of the nonunion. At that point it was noted that the area was very unstable and required fixation, however there was very little bone in the head of the proximal phalanx for screws or plate. Decision was made to cross K wires from the distal phalanx into the base of the proximal phalanx across the nonunion site. The first wire was placed on the medial side of the base of the distal phalanx and advanced in a proximal lateral direction until the wire was seated in the bone at the base of the proximal phalanx. Position was confirmed under fluoroscopy. A second wire was done on the lateral base of the distal phalanx and advanced into the distal medial direction until it was in the bone of the proximal phalanx. Once both wires were in place areas tested for stability and it appeared that there was rigid stability without any motion at the nonunion site. Layered closure was then performed for both incisions. The wires were then bent and cut and capped. Nonadherent gauze and a dry sterile dressing applied to the right foot. The patient tolerated above procedure and anesthesia well and went to recovery vital signs stable
== END 2022-04-13 14:02 | disposition home or self-care (01) ==
LOC: OR 09:09
PROVIDERS: ATTEND Podiatrist
DX: M96.0 Pseudarthrosis after fusion or arthrodesis (principal); M20.41 Other hammer toe(s) (acquired), right foot; M21.621 Bunionette of right foot; Z88.5 Allergy status to narcotic agent; Z91.040 Latex allergy status; M06.9 Rheumatoid arthritis, unspecified; E78.5 Hyperlipidemia, unspecified; Z87.891 Personal history of nicotine dependence; Z85.3 Personal history of malignant neoplasm of breast; Z98.890 Other specified postprocedural states; Z79.01 Long term (current) use of anticoagulants; Z79.02 Long term (current) use of antithrombotics/antiplatelets; Z79.82 Long term (current) use of aspirin; Z79.890 Hormone replacement therapy; E07.9 Disorder of thyroid, unspecified; Z82.49 Family history of ischemic heart disease and other diseases of the circulatory system; Z79.1 Long term (current) use of non-steroidal anti-inflammatories (NSAID)
CPT/HCPCS: 64450; 64445; 76942; 28320; C1713 ×2; J2250; J1100; J0690; J2405; J3010; J2795; J2370; J2704; J2001

== ENCOUNTER 2023-03-27 08:24 | Day surgery (SDC) | payer MEDICARE ==
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
[~2023-03-27 08:24] MED LIST changes: -DEXAMETHASONE SOD PHOSPHATE 4 MG/ML 1 ML VIAL IV ONE; -MIDAZOLAM 2 MG/2 ML VIAL IV PRN; -ONDANSETRON 4 MG/2 ML VIAL IVP ONE; -fentaNYL (PF) 50 MCG/ML 2 ML AMP IV PRN
[2023-03-27] MEDS ORDERED: PROPOFOL 10 MG/ML 20 ML VIAL IV ONE (09:10)
[2023-03-27] MEDS ORDERED: LIDOCAINE 1% INJ 10MG/ML (20 ML MDV) ONE (09:10)
[2023-03-27 09:21] VITALS: TEMP 98
--- NOTE | 2023-03-27 09:43 | P.PCN ---
Date of Procedure: 03/27/23 Description of Procedure: PREOPERATIVE DIAGNOSIS: Family history colon cancer Personal history of colon polyps History of genetic mutation, BRCA POSTOPERATIVE DIAGNOSIS: Family history colon cancer Personal history of colon polyps History of genetic mutation, BRCA Diverticulosis with sigmoid stricture OPERATION: Colonoscopy to the cecum, ileocecal valve and appendiceal orifice. SURGEON: Jeaneth Sosa MD. ANESTHESIA: MAC. INDICATIONS: The patient is a 73-year-old female who presents for colonoscopy screening. Benefits and risks were described and informed consent was obtained. DESCRIPTION OF PROCEDURE: The patient had undergone MiraLAX Gatorade prep. She had been brought into the operating room and laid in the left lateral decubitus position. After adequate intravenous sedation, the rectum was examined with 2% lidocaine jelly. No external hemorrhoids were encountered. The rectal tone was within normal limits. No lesions were palpated in the rectal vault. An Olympus pediatric colonoscope due to stricture. The scope advanced until the cecum, ileocecal valve and appendiceal orifice were clearly viewed. The prep was excellent. The scope was removed with visualization of each mucosal fold. Sigmoid diverticulosis was encountered with stricture between 20-30 cm from the anal verge. No colonic polyps were found. No evidence of focal colitis was found. Retroflexion of the scope demonstrated grade 1 internal hemorrhoids without active bleeding or inflammation. The colon was desufflated. The patient had tolerated the procedure well. Withdrawal time was over 6 minutes. FINDINGS: Aronchick preparation quality scale 1 (1-5) Internal hemorrhoids, grade 1 No external prolapsed hemorrhoids. No arteriovenous malformations. No adenomatous polyps. No focal colitis. Diverticulosis with sigmoid stricture between 20-30 cm from anal verge RECOMMENDATIONS: Lower endoscopy in 3 years, 2025 years due to genetic risk Plan - Discharge Summary Discharge Rx Participant: No New Discharge Prescriptions: Continue Anastrozole [Arimidex] 1 mg PO DAILY Calcium Carbonate [Calcium] 1,200 mg PO DAILY Aspirin [Adult Low Dose Aspirin EC] 81 mg PO DAILY Cholecalciferol [Vitamin D3 (25 Mcg = 1000 Iu)] 50 mcg PO DAILY Folic Acid 1 mg PO DAILY Leflunomide [Arava] 20 mg PO DAILY Tofacitinib Citrate [Xeljanz Xr] 11 mg PO DAILY Triamterene-Hctz 37.5-25Mg [Dyazide 37.5-25 Capsule] 1 cap PO DAILY Vitamin E 400 unit PO DAILY Levothyroxine Sodium [Synthroid] 50 mcg PO DAILY Atorvastatin [Lipitor] 20 mg PO DAILY Teriparatide [Forteo] 20 mcg SQ DAILY Discharge Medication List Anastrozole [Arimidex] 1 mg PO DAILY 10/23/16 [History] Calcium Carbonate [Calcium] 1,200 mg PO DAILY 10/23/16 [History] Aspirin [Adult Low Dose Aspirin EC] 81 mg PO DAILY 11/05/19 [History] Cholecalciferol [Vitamin D3 (25 Mcg = 1000 Iu)] 50 mcg PO DAILY 11/05/19 [History] Folic Acid 1 mg PO DAILY 11/05/19 [History] Leflunomide [Arava] 20 mg PO DAILY 11/05/19 [History] Tofacitinib Citrate [Xeljanz Xr] 11 mg PO DAILY 11/05/19 [History] Atorvastatin [Lipitor] 20 mg PO DAILY 10/25/20 [History] Levothyroxine Sodium [Synthroid] 50 mcg PO DAILY 10/25/20 [History] Triamterene-Hctz 37.5-25Mg [Dyazide 37.5-25 Capsule] 1 cap PO DAILY 10/25/20 [History] Vitamin E 400 unit PO DAILY 06/22/21 [History] Teriparatide [Forteo] 20 mcg SQ DAILY 03/26/23 [History] Follow up Appointment(s)/Referral(s): Jeaneth Sosa MD [STAFF PHYSICIAN] - As Needed Patient Instructions/Handouts: *Surgery [facility] - (Anesthesia) Discharge Instructions Outpatient Surgery, Diverticulosis (ED), Diverticulitis Diet (GEN) Activity/Diet/Wound Care/Special Instructions: Repeat colonoscopy 3 years, 2025 Discharge Disposition: HOME SELF-CARE
[2023-03-27 09:47] VITALS: RESP 16
[2023-03-27 10:14] VITALS: BP 113/79; PULSE 74
== END 2023-03-27 10:20 | disposition home or self-care (01) ==
LOC: ORWHC2ENDO 08:24
PROVIDERS: ATTEND Surgery Plastic and Reconstructive Surgery
DX: Z12.11 Encounter for screening for malignant neoplasm of colon (principal); E07.9 Disorder of thyroid, unspecified; M19.90 Unspecified osteoarthritis, unspecified site; E78.5 Hyperlipidemia, unspecified; K56.699 Other intestinal obstruction unspecified as to partial versus complete obstruction; Z86.010 Personal history of colon polyps; Z80.0 Family history of malignant neoplasm of digestive organs; Z79.899 Other long term (current) drug therapy; Z79.82 Long term (current) use of aspirin; Z87.891 Personal history of nicotine dependence; Z79.890 Hormone replacement therapy; Z91.040 Latex allergy status; Z88.5 Allergy status to narcotic agent
CPT/HCPCS: J2001; J2704; G0105